=== PATIENT | female | born 1980 | race Caucasian/White ===

== ENCOUNTER 2019-12-24 19:04 | Inpatient (IN) | payer OTHER ==
--- NOTE | 2019-12-24 20:08 | PDOC ---
History of Present Illness - General Chief Complaint: Altered Mental Status Stated Complaint: Altered Mental Status Time Seen by Provider: 12/24/19 20:07 History Source: Patient Exam Limitations: Intoxication - History of Present Illness Initial Comments: 12/24/19 21:35 Ms. Kennedy is a 39y/o female with cocaine, alcohol, and heroin use disorders who presents from [facility] for AMS. Pt complains of left side chest, breast, and abdominal pain of unknown amount of time. She denies recent surgeries. She reports shortness of breath. She denies nausea or vomiting. She presented to [facility] for rehab. Her last use of cocaine inhalation (2 bags/daily) was 2 days ago. Last use of heroin injection (2-3 bags/daily) was 2 days ago. She denies alcohol use during current interview. History is limited due to pt's mental status. CIWA 8 COWS 5 Past History - Past Medical History Allergies/Adverse Reactions: Allergies Allergy/AdvReac Type Severity Reaction Status Date / Time No Known Allergies Allergy Verified 12/24/19 19:22 Home Medications: Ambulatory Orders Cefpodoxime Proxetil [Vantin -] 200 mg PO Q12H #12 tablet 12/27/19 Clindamycin [Cleocin -] 300 mg PO Q12H #12 capsule 12/27/19 Folic Acid 1 mg PO DAILY #30 tablet 12/27/19 Multivitamin [Multiple Vitamins] 1 each PO DAILY #30 tablet 12/27/19 Thiamine HCl [B-1] 100 mg PO DAILY #30 tablet 12/27/19 - Psycho Social/Smoking Cessation Hx Smoking History: Current every day smoker Have you smoked in the past 12 months: Yes Information on smoking cessation initiated: No 'Breaking Loose' booklet given: 02/08/17 Hx Alcohol Use: Yes Drug/Substance Use Hx: Yes Substance Use Type: Cocaine, Heroin Hx Substance Use Treatment: No Review of Systems - Review of Systems Constitutional: Yes: Other (feels warm) Respiratory: Yes: Shortness of Breath Cardiac (ROS): Yes: Chest Pain ABD/GI: No: Nausea, Vomiting *Physical Exam - Vital Signs Last Vital Signs Temp Pulse Resp BP Pulse Ox 99.9 F H 92 H 16 131/87 97 12/24/19 19:22 12/24/19 19:22 12/24/19 19:22 12/24/19 19:22 12/24/19 19:22 - Physical Exam General Appearance: Yes: Disheveled HEENT: positive: Other (pinpoint pupils b/l) Neck: positive: Trachea midline Respiratory/Chest: positive: Lungs Clear Cardiovascular: positive: Regular Rhythm, Regular Rate. negative: Murmur Gastrointestinal/Abdominal: positive: Normal Bowel Sounds, Tender, Guarding ( upper abdominal) Extremity: positive: Other (b/l scarring and calcification of antecubitals on arms) Integumentary: positive: Other (left upper nipple line is slightly erythematous and possible absorbable suture material noted) Neurologic: positive: Other (somnolent, alert to person only) ED Treatment Course - LABORATORY CBC & Chemistry Diagram: 12/26/19 07:22 12/27/19 12:20 Medical Decision Making - Medical Decision Making 12/24/19 21:49 Ms. Kennedy is a 39y/o female with cocaine use disorder and alcohol use disorder who presents from [facility] for AMS. Pt complains of left side chest, breast, and abdominal pain. She denies recent surgeries. ddx: r/o sepsis, cellulitis of breast, bacteremia orders: CBC, CMP, trop, lactic, flu swab, CXR, EKG, CT head, IV NS 12/24/19 22:40 no leukocytosis, CMP unremarkable 12/24/19 23:09 flu negative, serum negative, alcohol negative 12/24/19 23:38 Pt still alert to person only Discharge - Discharge Information Problems reviewed: Yes Clinical Impression/Diagnosis: AMS (altered mental status) Qualifiers: Altered mental status type: unspecified Qualified Code(s): R41.82 - Altered mental status, unspecified Condition: Improved - Follow up/Referral - Patient Discharge Instructions - Post Discharge Activity
[2019-12-24] MEDS ORDERED: SODIUM CHLORIDE 2,109 ML IV ONE (20:48)
[2019-12-24 21:47] LABS: BASO % 0.3 % (0-2.0); EOS % 3.6 % (0-4.5); HEMATOCRIT 32.6 % (32.4-45.2); HEMOGLOBIN 10.7 GM/dL (10.7-15.3); LYMPH % 25.2 % (8-40); MCH 26.6 pg (25.7-33.7); MCHC 32.7 g/dl (32.0-36.0); MEAN CELL VOLUME 81.5 fl (80-96); MONO % 5.1 % (3.8-10.2); NEUT % 65.8 % (42.8-82.8); PLATELET COUNT 296 K/MM3 (134-434); RDW 16.2 % (11.6-15.6); WHITE BLOOD COUNT 7.5 K/mm3 (4.0-10.0)
[2019-12-24 21:50] LABS: VENOUS PC02 43.1 mmHg (38-52); VENOUS PH 7.45 (7.31-7.41)
--- NOTE | 2019-12-24 21:52 | PDOC ---
Documentation entered by Johanna Epps SCRIBE, acting as scribe for Zaida Funes MD. Zaida Funes MD: This documentation has been prepared by the Supriya aguilera Nirvannie, SCRIBE, under my direction and personally reviewed by me in its entirety. I confirm that the documentation accurately reflects all work, treatment, procedures, and medical decision making performed by me. Attending Attestation - Resident Resident Name: Sherly Womack - ED Attending Attestation I have performed the following: I have examined & evaluated the patient, The case was reviewed & discussed with the resident, I agree w/resident's findings & plan, Exceptions are as noted - HPI HPI: 12/24/19 21:26 The patient is a year old female, with a significant past medical history of Polysubstance abuse (cocaine, alcohol, heroin), who presents to the emergency department with AMS and fever ( Tmax 99.9F). History is limited secondary to patients clinical condition thus was obtained via EMR and [facility] staff. Allergies: NKDA Social history: Alcohol abuse (2pts vodka/day last drink 1 day ago), Heroin abuse (5bags/day, last used 2 bags 1 day ago), cocaine abuse (2 bags/day, last used 1 day ago) - Physicial Exam PE: GENERAL: Somnolent, awakens to voice. HEAD: No signs of trauma EYES: Pupils small but reactive. EOMI, sclera anicteric, conjunctiva clear ENT: Auricles normal inspection, hearing grossly normal, nares patent, oropharynx clear without exudates. Dry mucosa NECK: Normal ROM, supple, no lymphadenopathy, JVD, or masses LUNGS: Breath sounds equal, clear to auscultation bilaterally. No wheezes, and no crackles HEART: Regular rate and rhythm, normal S1 and S2, no murmurs, rubs or gallops ABDOMEN: Soft, nontender, normoactive bowel sounds. No guarding, no rebound. No masses EXTREMITIES: Normal range of motion, no edema. No clubbing or cyanosis. No cords, erythema, or tenderness NEUROLOGICAL: Cranial nerves II through XII grossly intact. Somewhat limited exam due to AMS. Motor and sensation intact SKIN: Warm, diaphoretic, normal turgor, no rashes. +Sutures to the L breast, superior areola. No surrounding erythema - Medical Decision Making Poor historian, with polysubstance abuse as per chart review, presenting with AMS, 99.9 oral temp. Will initiate sepsis order set, as well as utox, flu swab, ammonia level. 12/25/19 02:00 Pt signed out to Dr. Blankenship at 2am shift change. Awaiting CTH and rectal temp. If febrile, she may require LP to r/o meningitis. If not, will wait until she is clinically sober.
[2019-12-24 22:23] LABS: ALBUMIN 3.2 g/dl (3.4-5.0); BILIRUBIN,TOTAL 0.2 mg/dL (0.2-1); CALCIUM 8.4 mg/dL (8.5-10.1); CREATININE 0.6 mg/dL (0.55-1.3); POTASSIUM 3.8 mmol/L (3.5-5.1)
[2019-12-24 22:30] LABS: INR 1.18 (0.83-1.09)
[2019-12-24 22:32] LABS: ACTIVATED PTT 32.3 SECONDS (25.2-36.5)
--- NOTE | 2019-12-25 00:42 | PDOC ---
*Physical Exam - Vital Signs Last Vital Signs Temp Pulse Resp BP Pulse Ox 99.9 F H 92 H 16 131/87 97 12/24/19 19:22 12/24/19 19:22 12/24/19 19:22 12/24/19 19:22 12/24/19 19:22 ED Treatment Course - LABORATORY CBC & Chemistry Diagram: 12/24/19 21:00 12/24/19 21:00 - ADDITIONAL ORDERS Additional order review: Laboratory Results 12/24/19 12/24/19 12/24/19 21:00 21:00 21:00 PT with INR INR PTT (Actin FS) VBG pH POC VBG pCO2 POC VBG pO2 VBG HCO3 VBG O2 Sat (Cindy) VBG Base Excess Sodium Potassium Chloride Carbon Dioxide Anion Gap BUN Creatinine Est GFR (CKD-EPI)AfAm Est GFR (CKD-EPI)NonAf Random Glucose Lactic Acid Calcium Total Bilirubin AST ALT Alkaline Phosphatase Ammonia 19.40 Troponin I Total Protein Albumin Serum , Qual Negative Alcohol, Quantitative < 3 12/24/19 12/24/19 12/24/19 21:00 21:00 21:00 PT with INR 14.00 H INR 1.18 H PTT (Actin FS) 32.3 VBG pH 7.45 H POC VBG pCO2 43.1 POC VBG pO2 73.0 H VBG HCO3 29.7 H VBG O2 Sat (Cindy) 94.4 H VBG Base Excess 5.6 H Sodium Potassium Chloride Carbon Dioxide Anion Gap BUN Creatinine Est GFR (CKD-EPI)AfAm Est GFR (CKD-EPI)NonAf Random Glucose Lactic Acid Calcium Total Bilirubin AST ALT Alkaline Phosphatase Ammonia Troponin I < 0.02 Total Protein Albumin Serum , Qual Alcohol, Quantitative 12/24/19 12/24/19 21:00 21:00 PT with INR INR PTT (Actin FS) VBG pH POC VBG pCO2 POC VBG pO2 VBG HCO3 VBG O2 Sat (Cindy) VBG Base Excess Sodium 135 L Potassium 3.8 Chloride 102 Carbon Dioxide 28 Anion Gap 6 L BUN 7.0 Creatinine 0.6 Est GFR (CKD-EPI)AfAm 132.14 Est GFR (CKD-EPI)NonAf 114.01 Random Glucose 91 Lactic Acid 1.2 Calcium 8.4 L Total Bilirubin 0.2 AST 17 ALT 14 Alkaline Phosphatase 93 Ammonia Troponin I Total Protein 8.0 Albumin 3.2 L Serum , Qual Alcohol, Quantitative 12/24/19 21:00 RBC 4.00 MCV 81.5 MCHC 32.7 RDW 16.2 H MPV 8.0 Neutrophils % 65.8 Lymphocytes % 25.2 Monocytes % 5.1 Eosinophils % 3.6 Basophils % 0.3 - Medications Given in the ED: ED Medications Discontinued Medications Generic Name Dose Route Start Last Admin Trade Name Davi PRN Reason Stop Dose Admin Sodium Chloride 2,109 mls @ 1,054.5 mls/hr 12/24/19 20:48 12/24/19 21:32 Normal Saline - 30 ml/kg infuse over 2 hr (2109 ml) 12/24/19 22:47 1,054.5 mls/hr IV Administration ONCE ONE Medical Decision Making - Medical Decision Making 12/25/19 00:42 Sign out. 39y F with PMH of cocaine, heroin use, alcohol use presenting from [facility] for AMS. Pt was complaining of chest and breast pain. Pt states she last used cocaine and heroin yesterday, "used a lot'. Pt states that "everything is wrong ' and will not elaborate further. She urinated and defacated on the floor. She is states her name, knows she's at [facility] but does not answer questions when asked what the date is. Is not fully following commands. has mulitple skin lesions from drug use. sutures near l nipple without signs of infection. pending urine, ct. all other workup has been negative. CT The ventricular system is midline and nondilated. The sulcal pattern is normal for the patient's age. There is no bleed, mass, extra-axial fluid collection or mass effect. Comminuted and mildly depressed nasal fracture is noted. The vomer is fractured. No skull fracture or skull lesion is identified. The mastoid air cells are clear. Patchy ethmoid sinus opacification may be blood from trauma. IMPRESSION: Nasal bridge and vomer fractures. No skull fracture or intracranial hemorrhage. 12/25/19 06:31 ua negative for infection. positive for cocaine and opiates which pt states she uses. will admit for AMS. Discharge - Discharge Information Problems reviewed: Yes Clinical Impression/Diagnosis: AMS (altered mental status) Qualifiers: Altered mental status type: unspecified Qualified Code(s): R41.82 - Altered mental status, unspecified Condition: Stable - Admission Yes - Follow up/Referral - Patient Discharge Instructions - Post Discharge Activity
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
[2019-12-25] MEDS ORDERED: SODIUM CHLORIDE 1,000 ML IV STA (02:22)
[2019-12-25] MEDS ORDERED: FOLIC ACID INJECTION - 1 MG, THIAMINE HCL 100 MG, MULTIVIT INJECTION ADULT 10 ML in SOD... IVPB ONE (05:07)
[2019-12-25 06:11] LABS: PH,URINE 8.5 (5.0-8.0); URINE APPEARANCE CLEAR; URINE BILIRUBIN NEGATIVE (NEGATIVE); URINE COLOR YELLOW; URINE GLUCOSE (UA) NEGATIVE (NEGATIVE); URINE KETONE NEGATIVE (NEGATIVE); URINE LEUK ESTERASE NEGATIVE (NEGATIVE); URINE NITRITE NEGATIVE (NEGATIVE); URINE PROTEIN NEGATIVE (NEGATIVE)
[2019-12-25 06:25] LABS: METHADONE, UR NEGATIVE ng/ml (CUTOFF=300); PHENCYCLIDINE,URINE NEGATIVE ng/ml (CUTOFF=25); URINE AMPHETAMINES NEGATIVE ng/ml (CUTOFF=500); URINE BARBITURATES NEGATIVE ng/ml (CUTOFF=200); URINE BENZODIAZEPINES NEGATIVE ng/ml (CUTOFF=200)
[2019-12-25 06:39] LABS: COCAINE, UR POSITIVE ng/ml (CUTOFF=300)
[2019-12-25 06:40] LABS: OPIATES, URI POSITIVE ng/ml (CUTOFF=300)
--- NOTE | 2019-12-25 07:10 | PDOC ---
*Physical Exam - Vital Signs Last Vital Signs Temp Pulse Resp BP Pulse Ox 98.4 F 94 H 18 127/84 95 12/25/19 02:17 12/25/19 05:28 12/25/19 05:28 12/25/19 05:28 12/25/19 05:28 - Physical Exam 12/25/19 07:09 Received sign out from Dr. Patel ED Treatment Course - LABORATORY CBC & Chemistry Diagram: 12/26/19 07:22 12/26/19 07:22 - ADDITIONAL ORDERS Additional order review: Laboratory Results 12/25/19 12/25/19 12/24/19 05:05 05:05 21:00 PT with INR INR PTT (Actin FS) VBG pH POC VBG pCO2 POC VBG pO2 VBG HCO3 VBG O2 Sat (Cindy) VBG Base Excess Sodium Potassium Chloride Carbon Dioxide Anion Gap BUN Creatinine Est GFR (CKD-EPI)AfAm Est GFR (CKD-EPI)NonAf Random Glucose Lactic Acid Calcium Total Bilirubin AST ALT Alkaline Phosphatase Ammonia Troponin I Total Protein Albumin Serum , Qual Negative Urine Color Yellow Urine Appearance Clear Urine pH 8.5 H D Ur Specific [place] 1.009 L Urine Protein Negative Urine Glucose (UA) Negative Urine Ketones Negative Urine Blood Negative Urine Nitrite Negative Urine Bilirubin Negative Urine Urobilinogen 1.0 Ur Leukocyte Esterase Negative Opiates Screen Positive A* Methadone Screen Negative Barbiturate Screen Negative Phencyclidine Screen Negative Ur Amphetamines Screen Negative MDMA (Ecstasy) Screen Negative Benzodiazepines Screen Negative Cocaine Screen Positive A* U Marijuana (THC) Screen Negative Alcohol, Quantitative 12/24/19 12/24/19 12/24/19 21:00 21:00 21:00 PT with INR INR PTT (Actin FS) VBG pH 7.45 H POC VBG pCO2 43.1 POC VBG pO2 73.0 H VBG HCO3 29.7 H VBG O2 Sat (Cindy) 94.4 H VBG Base Excess 5.6 H Sodium Potassium Chloride Carbon Dioxide Anion Gap BUN Creatinine Est GFR (CKD-EPI)AfAm Est GFR (CKD-EPI)NonAf Random Glucose Lactic Acid Calcium Total Bilirubin AST ALT Alkaline Phosphatase Ammonia 19.40 Troponin I Total Protein Albumin Serum , Qual Urine Color Urine Appearance Urine pH Ur Specific [place] Urine Protein Urine Glucose (UA) Urine Ketones Urine Blood Urine Nitrite Urine Bilirubin Urine Urobilinogen Ur Leukocyte Esterase Opiates Screen Methadone Screen Barbiturate Screen Phencyclidine Screen Ur Amphetamines Screen MDMA (Ecstasy) Screen Benzodiazepines Screen Cocaine Screen U Marijuana (THC) Screen Alcohol, Quantitative < 3 12/24/19 12/24/19 12/24/19 21:00 21:00 21:00 PT with INR 14.00 H INR 1.18 H PTT (Actin FS) 32.3 VBG pH POC VBG pCO2 POC VBG pO2 VBG HCO3 VBG O2 Sat (Cindy) VBG Base Excess Sodium Potassium Chloride Carbon Dioxide Anion Gap BUN Creatinine Est GFR (CKD-EPI)AfAm Est GFR (CKD-EPI)NonAf Random Glucose Lactic Acid 1.2 Calcium Total Bilirubin AST ALT Alkaline Phosphatase Ammonia Troponin I < 0.02 Total Protein Albumin Serum , Qual Urine Color Urine Appearance Urine pH Ur Specific [place] Urine Protein Urine Glucose (UA) Urine Ketones Urine Blood Urine Nitrite Urine Bilirubin Urine Urobilinogen Ur Leukocyte Esterase Opiates Screen Methadone Screen Barbiturate Screen Phencyclidine Screen Ur Amphetamines Screen MDMA (Ecstasy) Screen Benzodiazepines Screen Cocaine Screen U Marijuana (THC) Screen Alcohol, Quantitative 12/24/19 21:00 PT with INR INR PTT (Actin FS) VBG pH POC VBG pCO2 POC VBG pO2 VBG HCO3 VBG O2 Sat (Cindy) VBG Base Excess Sodium 135 L Potassium 3.8 Chloride 102 Carbon Dioxide 28 Anion Gap 6 L BUN 7.0 Creatinine 0.6 Est GFR (CKD-EPI)AfAm 132.14 Est GFR (CKD-EPI)NonAf 114.01 Random Glucose 91 Lactic Acid Calcium 8.4 L Total Bilirubin 0.2 AST 17 ALT 14 Alkaline Phosphatase 93 Ammonia Troponin I Total Protein 8.0 Albumin 3.2 L Serum , Qual Urine Color Urine Appearance Urine pH Ur Specific [place] Urine Protein Urine Glucose (UA) Urine Ketones Urine Blood Urine Nitrite Urine Bilirubin Urine Urobilinogen Ur Leukocyte Esterase Opiates Screen Methadone Screen Barbiturate Screen Phencyclidine Screen Ur Amphetamines Screen MDMA (Ecstasy) Screen Benzodiazepines Screen Cocaine Screen U Marijuana (THC) Screen Alcohol, Quantitative 12/24/19 21:00 RBC 4.00 MCV 81.5 MCHC 32.7 RDW 16.2 H MPV 8.0 Neutrophils % 65.8 Lymphocytes % 25.2 Monocytes % 5.1 Eosinophils % 3.6 Basophils % 0.3 - Medications Given in the ED: ED Medications Discontinued Medications Generic Name Dose Route Start Last Admin Trade Name Davi PRN Reason Stop Dose Admin Sodium Chloride 2,109 mls @ 1,054.5 mls/hr 12/24/19 20:48 12/24/19 21:32 Normal Saline - 30 ml/kg infuse over 2 hr (2109 ml) 12/24/19 22:47 1,054.5 mls/hr IV Administration ONCE ONE Sodium Chloride 1,000 mls @ 1,000 mls/hr 12/25/19 02:22 12/25/19 03:04 Normal Saline - IV 12/25/19 03:21 1,000 mls/hr ASDIR STA Administration Medical Decision Making - Medical Decision Making Patient was accepted for admission by the hospitalist team. The sign out was conducted by Dr. Patel Discharge - Discharge Information Problems reviewed: Yes Clinical Impression/Diagnosis: AMS (altered mental status) Qualifiers: Altered mental status type: unspecified Qualified Code(s): R41.82 - Altered mental status, unspecified Condition: Stable - Follow up/Referral - Patient Discharge Instructions - Post Discharge Activity
[2019-12-25] MEDS ORDERED: FOLIC ACID 1 MG TABLET (FP) PO ONE (11:34)
[2019-12-25] MEDS ORDERED: THIAMINE HCL 100 MG TABLET (FP) ONE (12:25)
[2019-12-25] MEDS ORDERED: FOLIC ACID 1 MG TABLET (FP) ONE (12:25)
[2019-12-25] MEDS: THIAMINE HCL 100 MG TABLET (FP) PO SCH (12:28)
--- NOTE | 2019-12-25 12:35 | HP ---
CHIEF COMPLAINT: AMS PCP: none HISTORY OF PRESENT ILLNESS: Pt is a 39 y/o F with PMH poly substance abuse (cocaine, heroin, EtOH - does inject, last known use 12/23/2019) who was sent to the ED from [facility] for altered mental status. Reportedly pt was complaining of L breast pain initially , though she did not have that at the time of my interview. Pt was uncooperative with interview and exam requiring repeated prompting to answer any questions. She admitted to pain "everywhere", but refused to clarify any area particular discomfort. Refused to answer further ROS questions. When asked , stated she did not know where she was. Noted to have urinated in the bed and reportedly defecated on the floor in the emergency department last night. ER course was notable for: (1) Utox pos for opiate and cocaine (2) CT head: nasal septal defect, Right posterior nasal polyp, ethmoid chronic sinusitis, CXR: large heart, R atalectasis (3) Recent Travel: none PAST MEDICAL HISTORY: polysubstance abuse PAST SURGICAL HISTORY: B/l breast augmentation years ago Social History: Smoking: unknown Alcohol: reportedly drinks several pints of liquor daily Drugs: cocaine, heroin Homeless Allergies No Known Allergies Allergy (Verified 12/24/19 19:22) HOME MEDICATIONS: Home Medications Medication Instructions Recorded NK [No Known Home Medication] 12/24/19 REVIEW OF SYSTEMS: unable to assess PHYSICAL EXAMINATION Vital Signs - 24 hr 12/24/19 12/25/19 12/25/19 19:22 02:17 05:28 Temperature 99.9 F H 98.4 F Pulse Rate 92 H Pulse Rate [ 94 H Right] Respiratory 16 18 Rate Blood Pressure 131/87 Blood Pressure 127/84 [Right Arm] O2 Sat by Pulse 97 95 Oximetry (%) Limited exam. Pt uncooperative Gen: rousable, not oriented HEENT: NCAT, moist membranes Breast: s/p augmentation (? multiple procedures with scarring at inferior aspect and around areola), residual suture embedded in skin of left areola, no tenderness, no erythema, implants appear to be intact Cardio: rrr, normal s1s2, no mrg noted Pulm: cta b/l Abd: soft, nontender, nondistended Ext: LUE with scarring, no edema Laboratory Results - last 24 hr 12/24/19 12/24/19 12/24/19 21:00 21:00 21:00 WBC 7.5 RBC 4.00 Hgb 10.7 Hct 32.6 MCV 81.5 MCH 26.6 MCHC 32.7 RDW 16.2 H Plt Count 296 MPV 8.0 Absolute Neuts (auto) 4.9 Neutrophils % 65.8 Lymphocytes % 25.2 Monocytes % 5.1 Eosinophils % 3.6 Basophils % 0.3 Nucleated RBC % 0 PT with INR INR PTT (Actin FS) VBG pH POC VBG pCO2 POC VBG pO2 VBG HCO3 VBG O2 Sat (Cindy) VBG Base Excess Sodium 135 L Potassium 3.8 Chloride 102 Carbon Dioxide 28 Anion Gap 6 L BUN 7.0 Creatinine 0.6 Est GFR (CKD-EPI)AfAm 132.14 Est GFR (CKD-EPI)NonAf 114.01 Random Glucose 91 Lactic Acid 1.2 Calcium 8.4 L Total Bilirubin 0.2 AST 17 ALT 14 Alkaline Phosphatase 93 Ammonia Troponin I Total Protein 8.0 Albumin 3.2 L Serum , Qual Urine Color Urine Appearance Urine pH Ur Specific [place] Urine Protein Urine Glucose (UA) Urine Ketones Urine Blood Urine Nitrite Urine Bilirubin Urine Urobilinogen Ur Leukocyte Esterase Opiates Screen Methadone Screen Barbiturate Screen Phencyclidine Screen Ur Amphetamines Screen MDMA (Ecstasy) Screen Benzodiazepines Screen Cocaine Screen U Marijuana (THC) Screen Alcohol, Quantitative Influenza A (Rapid) Influenza B (Rapid) 12/24/19 12/24/19 12/24/19 21:00 21:00 21:00 WBC RBC Hgb Hct MCV MCH MCHC RDW Plt Count MPV Absolute Neuts (auto) Neutrophils % Lymphocytes % Monocytes % Eosinophils % Basophils % Nucleated RBC % PT with INR 14.00 H INR 1.18 H PTT (Actin FS) 32.3 VBG pH 7.45 H POC VBG pCO2 43.1 POC VBG pO2 73.0 H VBG HCO3 29.7 H VBG O2 Sat (Cindy) 94.4 H VBG Base Excess 5.6 H Sodium Potassium Chloride Carbon Dioxide Anion Gap BUN Creatinine Est GFR (CKD-EPI)AfAm Est GFR (CKD-EPI)NonAf Random Glucose Lactic Acid Calcium Total Bilirubin AST ALT Alkaline Phosphatase Ammonia Troponin I < 0.02 Total Protein Albumin Serum , Qual Urine Color Urine Appearance Urine pH Ur Specific [place] Urine Protein Urine Glucose (UA) Urine Ketones Urine Blood Urine Nitrite Urine Bilirubin Urine Urobilinogen Ur Leukocyte Esterase Opiates Screen Methadone Screen Barbiturate Screen Phencyclidine Screen Ur Amphetamines Screen MDMA (Ecstasy) Screen Benzodiazepines Screen Cocaine Screen U Marijuana (THC) Screen Alcohol, Quantitative Influenza A (Rapid) Influenza B (Rapid) 12/24/19 12/24/19 12/24/19 21:00 21:00 21:00 WBC RBC Hgb Hct MCV MCH MCHC RDW Plt Count MPV Absolute Neuts (auto) Neutrophils % Lymphocytes % Monocytes % Eosinophils % Basophils % Nucleated RBC % PT with INR INR PTT (Actin FS) VBG pH POC VBG pCO2 POC VBG pO2 VBG HCO3 VBG O2 Sat (Cindy) VBG Base Excess Sodium Potassium Chloride Carbon Dioxide Anion Gap BUN Creatinine Est GFR (CKD-EPI)AfAm Est GFR (CKD-EPI)NonAf Random Glucose Lactic Acid Calcium Total Bilirubin AST ALT Alkaline Phosphatase Ammonia 19.40 Troponin I Total Protein Albumin Serum , Qual Negative Urine Color Urine Appearance Urine pH Ur Specific [place] Urine Protein Urine Glucose (UA) Urine Ketones Urine Blood Urine Nitrite Urine Bilirubin Urine Urobilinogen Ur Leukocyte Esterase Opiates Screen Methadone Screen Barbiturate Screen Phencyclidine Screen Ur Amphetamines Screen MDMA (Ecstasy) Screen Benzodiazepines Screen Cocaine Screen U Marijuana (THC) Screen Alcohol, Quantitative < 3 Influenza A (Rapid) Influenza B (Rapid) 12/24/19 12/25/19 12/25/19 22:00 05:05 05:05 WBC RBC Hgb Hct MCV MCH MCHC RDW Plt Count MPV Absolute Neuts (auto) Neutrophils % Lymphocytes % Monocytes % Eosinophils % Basophils % Nucleated RBC % PT with INR INR PTT (Actin FS) VBG pH POC VBG pCO2 POC VBG pO2 VBG HCO3 VBG O2 Sat (Cindy) VBG Base Excess Sodium Potassium Chloride Carbon Dioxide Anion Gap BUN Creatinine Est GFR (CKD-EPI)AfAm Est GFR (CKD-EPI)NonAf Random Glucose Lactic Acid Calcium Total Bilirubin AST ALT Alkaline Phosphatase Ammonia Troponin I Total Protein Albumin Serum , Qual Urine Color Yellow Urine Appearance Clear Urine pH 8.5 H D Ur Specific [place] 1.009 L Urine Protein Negative Urine Glucose (UA) Negative Urine Ketones Negative Urine Blood Negative Urine Nitrite Negative Urine Bilirubin Negative Urine Urobilinogen 1.0 Ur Leukocyte Esterase Negative Opiates Screen Positive A* Methadone Screen Negative Barbiturate Screen Negative Phencyclidine Screen Negative Ur Amphetamines Screen Negative MDMA (Ecstasy) Screen Negative Benzodiazepines Screen Negative Cocaine Screen Positive A* U Marijuana (THC) Screen Negative Alcohol, Quantitative Influenza A (Rapid) Negative Influenza B (Rapid) Negative ASSESSMENT/PLAN: Pt is a 39 y/o F with PMH poly substance abuse (cocaine, heroin, EtOH - does inject, last known use 12/23/2019) who was sent to the ED from [facility] for altered mental status. AMS/Substance abuse -unclear etiology. ? intoxication (though pt was sent from [facility] via patient transport) -Head CT negative for acute process -labs unremarkable -c/w folate, thiamine, multivitamin -monitor for signs of withdrawal -feed when alert and hungry -will consult addiction medicine Not on home meds. No other known medical problems DVT ppx -hep sub q Visit type - Emergency Visit Emergency Visit: Yes Care time: The patient presented to the Emergency Department on the above date and was hospitalized for further evaluation of their emergent condition. - New Patient This patient is new to me today: Yes Date on this admission: 12/25/19 - Critical Care Critical Care patient: No ATTENDING PHYSICIAN STATEMENT I saw and evaluated the patient. I reviewed the resident's note and discussed the case with the resident. I agree with the resident's findings and plan as documented. SUBJECTIVE: OBJECTIVE: ASSESSMENT AND PLAN:
[2019-12-25] MEDS: HEPARIN NA (PORCINE) 5,000 UNITS/ML 1ML VIAL SQ SCH ×2 (15:00→21:43)
--- NOTE | 2019-12-25 15:33 | PN ---
Teaching Attending Note Name of Resident: Malcolm Kinney ATTENDING PHYSICIAN STATEMENT I saw and evaluated the patient. I reviewed the resident's note and discussed the case with the resident. I agree with the resident's findings and plan as documented. SUBJECTIVE: Lethargic but rousable. No complaints. denies headache, visual disturbance, limb numbness, weakness, tingling. No abdominal pain/nausea/ vomiting. Admits to Heroin use and urinary incontinence. No fever/chills. No rash. OBJECTIVE: Low grade Temp 99.9. Hemodynamically stable. Unkempt, Malodorous, laying in her own urine. Lethargic but rousable. gives one-word answers. AAO x 1-2. Last Vital Signs Temp Pulse Resp BP Pulse Ox 98.4 F 80 20 144/91 100 12/25/19 14:00 12/25/19 14:00 12/25/19 14:00 12/25/19 14:00 12/25/19 14:00 HEENT - Atraumatic, Normocephalic. Heart - S1, S2, RRR Lungs - clear to auscultation Breasts (exam performed with consent and in the presence of medical residents) - superior aspect of L areolar has suture exposed. No surgical site infection/ dehiscence/discharge/erythema/tenderness. Abdomen - soft, non-tender. Bowel Sounds normal. Extremities - mild edema, no calf tenderness. Laboratory Results - last 24 hr 12/24/19 12/24/19 12/24/19 21:00 21:00 21:00 WBC 7.5 RBC 4.00 Hgb 10.7 Hct 32.6 MCV 81.5 MCH 26.6 MCHC 32.7 RDW 16.2 H Plt Count 296 MPV 8.0 Absolute Neuts (auto) 4.9 Neutrophils % 65.8 Lymphocytes % 25.2 Monocytes % 5.1 Eosinophils % 3.6 Basophils % 0.3 Nucleated RBC % 0 PT with INR INR PTT (Actin FS) VBG pH POC VBG pCO2 POC VBG pO2 VBG HCO3 VBG O2 Sat (Cindy) VBG Base Excess Sodium 135 L Potassium 3.8 Chloride 102 Carbon Dioxide 28 Anion Gap 6 L BUN 7.0 Creatinine 0.6 Est GFR (CKD-EPI)AfAm 132.14 Est GFR (CKD-EPI)NonAf 114.01 Random Glucose 91 Lactic Acid 1.2 Calcium 8.4 L Total Bilirubin 0.2 AST 17 ALT 14 Alkaline Phosphatase 93 Ammonia Troponin I Total Protein 8.0 Albumin 3.2 L Serum , Qual Urine Color Urine Appearance Urine pH Ur Specific [place] Urine Protein Urine Glucose (UA) Urine Ketones Urine Blood Urine Nitrite Urine Bilirubin Urine Urobilinogen Ur Leukocyte Esterase Opiates Screen Methadone Screen Barbiturate Screen Phencyclidine Screen Ur Amphetamines Screen MDMA (Ecstasy) Screen Benzodiazepines Screen Cocaine Screen U Marijuana (THC) Screen Alcohol, Quantitative Influenza A (Rapid) Influenza B (Rapid) 12/24/19 12/24/19 12/24/19 21:00 21:00 21:00 WBC RBC Hgb Hct MCV MCH MCHC RDW Plt Count MPV Absolute Neuts (auto) Neutrophils % Lymphocytes % Monocytes % Eosinophils % Basophils % Nucleated RBC % PT with INR 14.00 H INR 1.18 H PTT (Actin FS) 32.3 VBG pH 7.45 H POC VBG pCO2 43.1 POC VBG pO2 73.0 H VBG HCO3 29.7 H VBG O2 Sat (Cindy) 94.4 H VBG Base Excess 5.6 H Sodium Potassium Chloride Carbon Dioxide Anion Gap BUN Creatinine Est GFR (CKD-EPI)AfAm Est GFR (CKD-EPI)NonAf Random Glucose Lactic Acid Calcium Total Bilirubin AST ALT Alkaline Phosphatase Ammonia Troponin I < 0.02 Total Protein Albumin Serum , Qual Urine Color Urine Appearance Urine pH Ur Specific [place] Urine Protein Urine Glucose (UA) Urine Ketones Urine Blood Urine Nitrite Urine Bilirubin Urine Urobilinogen Ur Leukocyte Esterase Opiates Screen Methadone Screen Barbiturate Screen Phencyclidine Screen Ur Amphetamines Screen MDMA (Ecstasy) Screen Benzodiazepines Screen Cocaine Screen U Marijuana (THC) Screen Alcohol, Quantitative Influenza A (Rapid) Influenza B (Rapid) 12/24/19 12/24/19 12/24/19 21:00 21:00 21:00 WBC RBC Hgb Hct MCV MCH MCHC RDW Plt Count MPV Absolute Neuts (auto) Neutrophils % Lymphocytes % Monocytes % Eosinophils % Basophils % Nucleated RBC % PT with INR INR PTT (Actin FS) VBG pH POC VBG pCO2 POC VBG pO2 VBG HCO3 VBG O2 Sat (Cindy) VBG Base Excess Sodium Potassium Chloride Carbon Dioxide Anion Gap BUN Creatinine Est GFR (CKD-EPI)AfAm Est GFR (CKD-EPI)NonAf Random Glucose Lactic Acid Calcium Total Bilirubin AST ALT Alkaline Phosphatase Ammonia 19.40 Troponin I Total Protein Albumin Serum , Qual Negative Urine Color Urine Appearance Urine pH Ur Specific [place] Urine Protein Urine Glucose (UA) Urine Ketones Urine Blood Urine Nitrite Urine Bilirubin Urine Urobilinogen Ur Leukocyte Esterase Opiates Screen Methadone Screen Barbiturate Screen Phencyclidine Screen Ur Amphetamines Screen MDMA (Ecstasy) Screen Benzodiazepines Screen Cocaine Screen U Marijuana (THC) Screen Alcohol, Quantitative < 3 Influenza A (Rapid) Influenza B (Rapid) 12/24/19 12/25/19 12/25/19 22:00 05:05 05:05 WBC RBC Hgb Hct MCV MCH MCHC RDW Plt Count MPV Absolute Neuts (auto) Neutrophils % Lymphocytes % Monocytes % Eosinophils % Basophils % Nucleated RBC % PT with INR INR PTT (Actin FS) VBG pH POC VBG pCO2 POC VBG pO2 VBG HCO3 VBG O2 Sat (Cindy) VBG Base Excess Sodium Potassium Chloride Carbon Dioxide Anion Gap BUN Creatinine Est GFR (CKD-EPI)AfAm Est GFR (CKD-EPI)NonAf Random Glucose Lactic Acid Calcium Total Bilirubin AST ALT Alkaline Phosphatase Ammonia Troponin I Total Protein Albumin Serum , Qual Urine Color Yellow Urine Appearance Clear Urine pH 8.5 H D Ur Specific [place] 1.009 L Urine Protein Negative Urine Glucose (UA) Negative Urine Ketones Negative Urine Blood Negative Urine Nitrite Negative Urine Bilirubin Negative Urine Urobilinogen 1.0 Ur Leukocyte Esterase Negative Opiates Screen Positive A* Methadone Screen Negative Barbiturate Screen Negative Phencyclidine Screen Negative Ur Amphetamines Screen Negative MDMA (Ecstasy) Screen Negative Benzodiazepines Screen Negative Cocaine Screen Positive A* U Marijuana (THC) Screen Negative Alcohol, Quantitative Influenza A (Rapid) Negative Influenza B (Rapid) Negative Current Medications Generic Name Dose Route Start Last Admin Trade Name Freq PRN Reason Stop Dose Admin Heparin Sodium (Porcine) 5,000 unit 12/25/19 14:00 12/25/19 15:00 Heparin - SQ 5,000 unit TID [facility] Administration Multivitamins/Minerals/Vitamin C 1 tab 12/25/19 11:45 Tab-A-Vit - PO DAILY RADHA Thiamine HCl 100 mg 12/25/19 11:45 12/25/19 12:28 Vitamin B1 - PO 100 mg DAILY RADHA Administration Home Medications Medication Instructions Recorded NK [No Known Home Medication] 12/24/19 ASSESSMENT AND PLAN: 39 year old female with history of Polysubstance Abuse (Cocaine, IV Heroin, alcohol excess), presented to ED from for altered mental status. 1. Acute Metabolic Encephalopathy secondary to Polysubstance use/Intoxication. Lethargic but rousable. gives one-word answers. Baseline mental status/presence of cognitive dysfunction unclear - collateralHx required. CT Head: nasal septal defect, Right posterior nasal polyp, ethmoid chronic sinusitis s/p Banana Bag - continue MVI, Thiamine, Folate. No evidence of withdrawal currently. Will monitor. Addiction medicine consult. 2. Low Grade Fever, etiology unclear. CXR - rominent R infra-hilar markings ?infiltrate vs atelectasis. CT Chest recommended to exclude Pneumonia. Urine/Blood Cx pending. Will monitor off Abx. 3. Cardiomegaly on CXR - no evidence of decompensated HF. Given Cocaine and Alcohol history, will request Echo. DVT Px - Heparin SQ.
--- NOTE | 2019-12-25 15:45 | EKG ---
Test Reason : Blood Pressure : / mmHG Vent. Rate : 082 BPM Atrial Rate : 082 BPM P-R Int : 152 ms QRS Dur : 084 ms QT Int : 390 ms P-R-T Axes : 048 065 073 degrees QTc Int : 455 ms NORMAL SINUS RHYTHM NORMAL ECG NO PREVIOUS ECGS AVAILABLE Confirmed by MD MIKAEL, ALPHONSE ([id number]) on 12/25/2019 3:45:13 PM Referred By: Confirmed By:ALPHONSE YOUSSEF MD
[2019-12-25] MEDS: MULTIVITAMINS (DAILY MVI) TABLET (FP) PO SCH (17:04)
--- NOTE | 2019-12-25 19:05 | PDOC ---
Patient Follow-up (Call Back) - Post ED Follow - Up Condition at time of discharge: Stable Reason for Call Back: Radiology (Called by Dr. Oliva for abnormal cxr and is recommending CT. Already performed by inpatient team.)
[2019-12-25 23:15] VITALS: BMI 20.6
[2019-12-26] MEDS: HEPARIN NA (PORCINE) 5,000 UNITS/ML 1ML VIAL SQ SCH ×3 (05:22→21:44)
[2019-12-26 08:36] LABS: HEMATOCRIT 39.6 % (32.4-45.2); HEMOGLOBIN 13.4 GM/dL (10.7-15.3); MCH 26.8 pg (25.7-33.7); MCHC 33.9 g/dl (32.0-36.0); MEAN CELL VOLUME 79.1 fl (80-96); MEAN PLT VOLUME 8.3 fl (7.5-11.1); PLATELET COUNT 379 K/MM3 (134-434); RDW 16.1 % (11.6-15.6); WHITE BLOOD COUNT 8.1 K/mm3 (4.0-10.0)
[2019-12-26 09:07] LABS: BLOOD UREA NITROGEN 11.9 mg/dL (7-18); CALCIUM 9.2 mg/dL (8.5-10.1); CREATININE 0.6 mg/dL (0.55-1.3); MAGNESIUM 2.2 mg/dL (1.8-2.4); PHOSPHOROUS 4.4 mg/dL (2.5-4.9); POTASSIUM 3.4 mmol/L (3.5-5.1)
[2019-12-26] MEDS: MULTIVITAMINS (DAILY MVI) TABLET (FP) PO SCH (10:49)
[2019-12-26] MEDS: THIAMINE HCL 100 MG TABLET (FP) PO SCH (10:50)
[2019-12-26] MEDS ORDERED: guaiFENesin 200 MG/10 ML 10 ML UNIT-DOSE CUPS PO PRN (11:17)
--- NOTE | 2019-12-26 14:21 | PN ---
Progress Note (short form) - Note Progress Note: SUBJECTIVE: Awake, conversant, no complaints except for dry cough. Denies headache, visual disturbance, limb numbness, weakness, tingling. No abdominal pain/nausea/vomiting/diarrhea. no CP/palpitations/SOB. No dysuria/hematuria. No fever/chills. OBJECTIVE: Afebrile. Hemodynamically stable. Unkempt, Malodorous. AAO x 2. More alert today vs yesterday. Last Vital Signs Temp Pulse Resp BP Pulse Ox 97.6 F 89 18 154/96 98 12/26/19 05:47 12/26/19 05:47 12/26/19 05:47 12/26/19 05:47 12/25/19 20:00 Heart - S1, S2, RRR Lungs - clear to auscultation Abdomen - soft, non-tender. Bowel Sounds normal. Extremities - mild edema, no calf tenderness. Laboratory Results - last 24 hr 12/24/19 12/26/19 12/26/19 21:00 07:22 07:22 WBC 8.1 RBC 5.00 Hgb 13.4 Hct 39.6 D MCV 79.1 L MCH 26.8 MCHC 33.9 RDW 16.1 H Plt Count 379 D MPV 8.3 Sodium 133 L Potassium 3.4 L Chloride 98 Carbon Dioxide 26 Anion Gap 9 BUN 11.9 Creatinine 0.6 Est GFR (CKD-EPI)AfAm 132.14 Est GFR (CKD-EPI)NonAf 114.01 Random Glucose 105 Calcium 9.2 Phosphorus 4.4 Magnesium 2.2 Troponin I < 0.02 TSH 0.14 L Current Medications Generic Name Dose Route Start Last Admin Trade Name Freq PRN Reason Stop Dose Admin Guaifenesin 10 ml 12/26/19 11:17 12/26/19 13:04 Robitussin - PO 10 ml Q6H PRN Administration COUGH Heparin Sodium (Porcine) 5,000 unit 12/25/19 14:00 12/26/19 13:04 Heparin - SQ 5,000 unit TID [facility] Administration Multivitamins/Minerals/Vitamin C 1 tab 12/25/19 11:45 12/26/19 10:49 Tab-A-Vit - PO 1 tab DAILY RADHA Administration Thiamine HCl 100 mg 12/25/19 11:45 12/26/19 10:50 Vitamin B1 - PO 100 mg DAILY RADHA Administration Home Medications Medication Instructions Recorded NK [No Known Home Medication] 12/24/19 ASSESSMENT AND PLAN: 39 year old female with history of Polysubstance Abuse (Cocaine, IV Heroin, alcohol excess), presented to ED from for altered mental status. 1. Acute Metabolic Encephalopathy secondary to Polysubstance use/Intoxication. Awake, Alert x 2. appears to have some cognitive deficit. Baseline mental status /presence of cognitive dysfunction unclear - collateral Hx required. CT Head: nasal septal defect, Right posterior nasal polyp, ethmoid chronic sinusitis s/p Banana Bag - continue MVI, Thiamine, Folate. No evidence of withdrawal currently. Will monitor. Addiction medicine consulted. 2. Low Grade Fever, resolved CXR - prominent R infra-hilar markings ?infiltrate vs atelectasis. CT Chest recommended to exclude Pneumonia - awaiting official radiology read. Urine Cx contaminated. Blood Cx negative. Will monitor off Abx. 3. Cardiomegaly on CXR - no evidence of decompensated HF. Given Cocaine and Alcohol excess history, Echo requested. 4. Hypokalemia - repleted. DVT Px - Heparin SQ. Visit type - Emergency Visit Emergency Visit: Yes ED Registration Date: 12/25/19 Care time: The patient presented to the Emergency Department on the above date and was hospitalized for further evaluation of their emergent condition. - New Patient This patient is new to me today: No - Critical Care Critical Care patient: No - Discharge Referral Referred to [facility] No
[2019-12-26] MEDS ORDERED: POTASSIUM CHLORIDE TABS 20 MEQ TABLET.ER (FP) PO ONE (16:43)
[2019-12-26] MEDS: CLINDAMYCIN 600MG PREMIX IVPB 600 MG/50 ML BAG IVPB SCH ×2 (17:24→21:45)
[2019-12-26] MEDS ORDERED: DEXTROSE 5%-WATER - 50 ML IVPB ONE (17:30)
[2019-12-26] MEDS ORDERED: cefTRIAXone SODIUM 1 GM VIAL ONE (17:30)
[2019-12-26] MEDS: CEFTRIAXONE 1 GM in DEXTROSE 5%-WATER - 50 ML IVPB SCH (17:31)
[2019-12-27] MEDS: CLINDAMYCIN 600MG PREMIX IVPB 600 MG/50 ML BAG IVPB SCH ×4 (02:50→21:52)
[2019-12-27] MEDS: HEPARIN NA (PORCINE) 5,000 UNITS/ML 1ML VIAL SQ SCH ×3 (05:58→21:53)
[2019-12-27] MEDS ORDERED: ACETAMINOPHEN 325 MG TABLET (FP) PO PRN (08:25)
[2019-12-27] MEDS ORDERED: POTASSIUM CHLORIDE TABS 20 MEQ TABLET.ER (FP) PO ONE (08:30)
[2019-12-27] MEDS ORDERED: DEXTROSE 5%-WATER - 50 ML IVPB ONE (08:35)
[2019-12-27] MEDS ORDERED: cefTRIAXone SODIUM 1 GM VIAL ONE (08:35)
[2019-12-27] MEDS: THIAMINE HCL 100 MG TABLET (FP) PO SCH ×2 (08:38→09:19)
[2019-12-27] MEDS: MULTIVITAMINS (DAILY MVI) TABLET (FP) PO SCH ×2 (08:38→09:19)
[2019-12-27] MEDS: CEFTRIAXONE 1 GM in DEXTROSE 5%-WATER - 50 ML IVPB SCH ×2 (08:39→09:18)
[2019-12-27] MEDS ORDERED: cloNIDine HCL 0.1 MG TABLET PO PRN (11:46)
[2019-12-27] MEDS ORDERED: METHADONE HCL 10 MG TABLET PO ONE (12:00)
[2019-12-27] MEDS ORDERED: MAG HYDROX/AL HYDROX/SIMETH 30 ML UNIT-DOSE CUP PO ONE (13:30)
[2019-12-27] MEDS ORDERED: ACETAMINOPHEN 1000 MG/100 ML VIAL (NON FORMULARY) IVPB ONE (13:30)
--- NOTE | 2019-12-27 14:29 | PN ---
Teaching Attending Note Name of Resident: Louis Harding ATTENDING PHYSICIAN STATEMENT I saw and evaluated the patient. I reviewed the resident's note and discussed the case with the resident. I agree with the resident's findings and plan as documented. SUBJECTIVE: Awake, conversant, no complaints except wants to [place]. Denies headache, visual disturbance, limb numbness, weakness, tingling. complains of intermittent abdominal discomfort/nausea. No vomiting. No diarrhea. No CP/palpitations/SOB. No dysuria/hematuria. No fever/chills. OBJECTIVE: Afebrile. Hemodynamically stable. Unkempt, Malodorous. AAO x 2. Last Vital Signs Temp Pulse Resp BP Pulse Ox 98.3 F 104 H 20 150/80 98 12/27/19 05:09 12/27/19 05:09 12/27/19 05:09 12/27/19 05:09 12/25/19 20:00 Heart - S1, S2, RRR Lungs - clear to auscultation Abdomen - soft, non-tender. Bowel Sounds normal. Extremities - mild edema, no calf tenderness. Laboratory Results - last 24 hr 12/26/19 12/27/19 07:22 12:20 Sodium 133 L Potassium 3.4 L 4.5 Chloride 98 Carbon Dioxide 26 Anion Gap 9 BUN 11.9 Creatinine 0.6 Est GFR (CKD-EPI)AfAm 132.14 Est GFR (CKD-EPI)NonAf 114.01 Random Glucose 105 Calcium 9.2 Phosphorus 4.4 Magnesium 2.2 Free T4 1.24 Current Medications Generic Name Dose Route Start Last Admin Trade Name Freq PRN Reason Stop Dose Admin Acetaminophen 650 mg 12/27/19 08:25 12/27/19 08:38 Tylenol - PO 650 mg Q4H PRN Administration PAIN LEVEL 6-10 Clonidine 0.1 mg 12/27/19 11:46 Catapres - PO 12/28/19 23:59 Q4H PRN Withdrawal Symptoms Guaifenesin 10 ml 12/26/19 11:17 12/26/19 13:04 Robitussin - PO 10 ml Q6H PRN Administration COUGH Heparin Sodium (Porcine) 5,000 unit 12/25/19 14:00 12/27/19 14:04 Heparin - SQ 5,000 unit TID RADHA Administration Ceftriaxone Sodium 1 gm/ 50 mls @ 100 mls/hr 12/26/19 16:45 12/27/19 09:18 Dextrose IVPB Not Given DAILY [facility] Clindamycin Phosphate 600 mg in 50 mls @ 100 mls/hr 12/26/19 17:00 12/27/19 08:39 Cleocin 600 Mg Premix Ivpb - IVPB 100 mls/hr Q6H-IV RADHA Administration Protocol Methadone HCl 15 mg 12/28/19 10:00 Dolophine - PO 12/28/19 10:01 ONCE ONE Methadone HCl 10 mg 12/29/19 10:00 Dolophine - PO 12/29/19 10:01 ONCE ONE Methadone HCl 5 mg 12/30/19 06:00 Dolophine - PO 12/30/19 06:01 ONCE ONE Multivitamins/Minerals/Vitamin C 1 tab 12/25/19 11:45 12/27/19 09:19 Tab-A-Vit - PO Not Given DAILY [facility] Thiamine HCl 100 mg 12/25/19 11:45 12/27/19 09:19 Vitamin B1 - PO Not Given DAILY [facility] Home Medications Medication Instructions Recorded Cefpodoxime Proxetil [Vantin -] 200 mg PO Q12H #12 tablet 12/27/19 Clindamycin [Cleocin -] 300 mg PO Q12H #12 capsule 12/27/19 Folic Acid 1 mg PO DAILY #30 tablet 12/27/19 Multivitamin [Multiple Vitamins] 1 each PO DAILY #30 tablet 12/27/19 Thiamine HCl [B-1] 100 mg PO DAILY #30 tablet 12/27/19 ASSESSMENT AND PLAN: 39 year old female with history of Polysubstance Abuse (Cocaine, IV Heroin, alcohol excess), presented to ED from for altered mental status. 1. Acute Metabolic Encephalopathy secondary to Polysubstance use/Intoxication. Awake, Alert x 2. appears to have some cognitive deficit. Baseline mental status /presence of cognitive dysfunction unclear - collateral Hx required. CT Head: nasal septal defect, Right posterior nasal polyp, ethmoid chronic sinusitis s/p Banana Bag - continue MVI, Thiamine, Folate. Starting to display some signs/symptoms of opiate withdrawal including nausea. Will start methadone detox and monitor. Addiction medicine consulted - for transfer to [facility] once accepted. 2. bilateral Pneumonia, Aspiration Bilat infiltrates on CT Chest. On ceftriaxone/Clinda. Afebrile, hemodynamically stable. Can continue as out-patient on Cephalosporin and Clindamycin. 3. Cardiomegaly on CXR - no evidence of decompensated HF. Given Cocaine and Alcohol excess history, Echo requested - patient declines. No evidence of fluid overload or decompensation currently. 4. Hypokalemia - repleted. 5. Pulmonary Nodules - for out-patient Pulmonary follow up. 6. Low TSH, normal free T4 - for out-patient repeat TFTs in 4-6 weeks. DVT Px - Heparin SQ. Dispo - [facility] once patient agrees and is accepted.
--- NOTE | 2019-12-27 15:18 | DS ---
Physical Exam: SUBJECTIVE: Patient seen and examined OBJECTIVE: Vital Signs Period Temp Pulse Resp BP Sys/Abraham Pulse Ox Last 24 Hr 98.1 F-98.3 F 94-104 20-20 150-153/66-80 PHYSICAL EXAM GENERAL: The patient is awake, alert, and fully oriented, in no acute distress. HEAD: Normal with no signs of trauma. EYES: PERRL, extraocular movements intact, sclera anicteric, conjunctiva clear. ENT: Ears normal, nares patent, oropharynx clear without exudates, moist mucous membranes. NECK: Trachea midline, full range of motion, supple. LUNGS: Breath sounds equal, clear to auscultation bilaterally, no wheezes, no crackles, no accessory muscle use. HEART: Regular rate and rhythm, S1, S2 without murmur, rub or gallop. ABDOMEN: Soft, nontender, nondistended, normoactive bowel sounds, no guarding, no rebound, no hepatosplenomegaly, no masses. EXTREMITIES: 2+ pulses, warm, well-perfused, no edema. NEUROLOGICAL: Cranial nerves II through XII grossly intact. Normal speech, gait not observed. PSYCH: Normal mood, normal affect. SKIN: Warm, dry, normal turgor, no rashes or lesions noted. LABS Laboratory Results - last 24 hr 12/26/19 12/27/19 07:22 12:20 Sodium 133 L Potassium 3.4 L 4.5 Chloride 98 Carbon Dioxide 26 Anion Gap 9 BUN 11.9 Creatinine 0.6 Est GFR (CKD-EPI)AfAm 132.14 Est GFR (CKD-EPI)NonAf 114.01 Random Glucose 105 Calcium 9.2 Phosphorus 4.4 Magnesium 2.2 Free T4 1.24 HOSPITAL COURSE: Date of Admission:12/25/19 Date of Discharge: 12/27/19 Discharge Summary Problems reviewed: Yes Reason For Visit: Altered Mental Status Condition: Improved - Instructions Diet, Activity, Other Instructions: You were admitted to the hospital for confusion While in the hospital, we evaluated you with lab work, blood work, imaging including a CAT scan of your chest. We found that your symptoms were likely caused by overdose of certain drugs you may have taken. We treated you with medications, monitored you overnight and your symptoms improved significantly. Your CAT scan showed some abnormalities which is likely due to a pneumonia, therefore you were started on antibiotics To complete the treatment of your pneumonia, please take the following medication; Cepodoxime (Vantin) 200 mg twice a day for 6 days total, starting tomorrow Clindamycin 300 mg twice a day, for 6 days total, starting tomorrow. We also found 2 lung nodules in your CAT scan, which you will need to follow up with the museum specialist, Dr. Mancera And We found that your Heart was enlarged, which you will need to follow up with an Echocardiogram at the [employer] Technician's office. Please take all medications as prescribed Please follow up with the [employer], Dr. Mancera within 1 week Please follow up with the Hydroelectric Systems Technician, Dr. Arndt, within 1 week, to get an Echocardiogram Please follow up with your primary care physician within 1 week Return to the emergency room, if you experience worsening of your symptoms, chest pain, abdominal pain or worsening of any of your conditions. Referrals: Daryl Mancera MD [Staff Physician] - 1 Week Keo Arndt MD [Staff Physician] - 1 Week Roger Brito DO [Staff Physician] - 1 Week Disposition: [facility] FACILITY - Home Medications Comprehensive Discharge Medication List: Ambulatory Orders Cefpodoxime Proxetil [Vantin -] 200 mg PO Q12H #12 tablet 12/27/19 Clindamycin [Cleocin -] 300 mg PO Q12H #12 capsule 12/27/19 Folic Acid 1 mg PO DAILY #30 tablet 12/27/19 Multivitamin [Multiple Vitamins] 1 each PO DAILY #30 tablet 12/27/19 Thiamine HCl [B-1] 100 mg PO DAILY #30 tablet 12/27/19 - Discharge Referral Referred to [facility] Med P.C.: No ATTENDING PHYSICIAN STATEMENT I saw and evaluated the patient. I reviewed the resident's note and discussed the case with the resident. I agree with the resident's findings and plan as documented. SUBJECTIVE: OBJECTIVE: ASSESSMENT AND PLAN:
--- NOTE | 2019-12-27 16:22 | PN ---
Physical Exam: SUBJECTIVE: Patient seen and examined. Pt currently seeking pain medications. Pt is agitated and screaming at the nurses station. I discussed with pt the need to return to parkcare. Pt refuses to return to park care. She reports diffuse body pains. Afebrile and no overnight events. Denies f/c/n/v/d/sob. OBJECTIVE: Vital Signs Period Temp Pulse Resp BP Sys/Abraham Pulse Ox Last 24 Hr 98.0 F-98.3 F 94-110 18-20 129-153/66-91 GENERAL: The patient is awake, alert, and not fully oriented, in no acute distress. Disheveled and poor hygiene. EYES: PERRL, extraocular movements intact, sclera anicteric. No ptosis. ENT: oropharynx clear without exudates, moist mucous membranes. NECK: Trachea midline, full range of motion, supple. LUNGS: Breath sounds equal, clear to auscultation bilaterally, no wheezes, no crackles HEART: Regular rate and rhythm, S1, S2 without murmur, rub or gallop. ABDOMEN: Soft, diffusely tender, nondistended, normoactive bowel sounds, no guarding EXTREMITIES: 2+ pulses, warm, well-perfused, no edema. NEUROLOGICAL: Cranial nerves II through XII grossly intact. Laboratory Results - last 24 hr 12/26/19 12/27/19 07:22 12:20 Sodium 133 L Potassium 3.4 L 4.5 Chloride 98 Carbon Dioxide 26 Anion Gap 9 BUN 11.9 Creatinine 0.6 Est GFR (CKD-EPI)AfAm 132.14 Est GFR (CKD-EPI)NonAf 114.01 Random Glucose 105 Calcium 9.2 Phosphorus 4.4 Magnesium 2.2 Free T4 1.24 Active Medications Current Medications Acetaminophen (Tylenol -) 650 mg PO Q4H PRN PRN Reason: PAIN LEVEL 6-10 Last Admin: 12/27/19 08:38 Dose: 650 mg Clonidine (Catapres -) 0.1 mg PO Q4H PRN PRN Reason: Withdrawal Symptoms Stop: 12/28/19 23:59 Last Admin: 12/27/19 16:01 Dose: 0.1 mg Guaifenesin (Robitussin -) 10 ml PO Q6H PRN PRN Reason: COUGH Last Admin: 12/26/19 13:04 Dose: 10 ml Heparin Sodium (Porcine) (Heparin -) 5,000 unit SQ TID [facility] Last Admin: 12/27/19 14:04 Dose: 5,000 unit Ceftriaxone Sodium 1 gm/ (Dextrose) 50 mls @ 100 mls/hr IVPB DAILY [facility] Last Admin: 12/27/19 09:18 Dose: Not Given Clindamycin Phosphate (Cleocin 600 Mg Premix Ivpb -) 600 mg in 50 mls @ 100 mls /hr IVPB Q6H-IV RADHA; Protocol Last Admin: 12/27/19 14:34 Dose: 100 mls/hr Methadone HCl (Dolophine -) 15 mg PO ONCE ONE Stop: 12/28/19 10:01 Methadone HCl (Dolophine -) 10 mg PO ONCE ONE Stop: 12/29/19 10:01 Methadone HCl (Dolophine -) 5 mg PO ONCE ONE Stop: 12/30/19 06:01 Multivitamins/Minerals/Vitamin C (Tab-A-Vit -) 1 tab PO DAILY [facility] Last Admin: 12/27/19 09:19 Dose: Not Given Thiamine HCl (Vitamin B1 -) 100 mg PO DAILY [facility] Last Admin: 12/27/19 09:19 Dose: Not Given Home Medications Medication Instructions Recorded Cefpodoxime Proxetil [Vantin -] 200 mg PO Q12H #12 tablet 12/27/19 Clindamycin [Cleocin -] 300 mg PO Q12H #12 capsule 12/27/19 Folic Acid 1 mg PO DAILY #30 tablet 12/27/19 Multivitamin [Multiple Vitamins] 1 each PO DAILY #30 tablet 12/27/19 Thiamine HCl [B-1] 100 mg PO DAILY #30 tablet 12/27/19 Microbiology 12/24/19 21:00 Blood - Peripheral Venous Blood Culture - Preliminary NO GROWTH OBTAINED AFTER 48 HOURS, INCUBATION TO CONTINUE FOR 3 DAYS. 12/24/19 21:00 Blood - Peripheral Venous Blood Culture - Preliminary NO GROWTH OBTAINED AFTER 48 HOURS, INCUBATION TO CONTINUE FOR 3 DAYS. 12/25/19 05:05 Urine - Urine Clean Catch Urine Culture - Final Contaminated: Please Repeat ASSESSMENT/PLAN: 39 y/o F, w/ pmh of poly substance abuse including cocaine, IV heroin, alcohol, presented from for altered mental status likely 2/2 to substance abuse #Acute metabolic encephalopathy 2/2 to polysubstance abuse Utox positive for cocaine and opiates Pt mentating but causing disruption CT Head shows nasal septal defect, Right posterior nasal polyp, ethmoid chronic sinusitis Pt currently getting MVI, Thiamine, Folate. cont Banana Bag Pt appears to be withdrawing Methadone detox started- 20mg today Contacted PC, pt is accepted- discussed with Dr. Neil and she accept pt. Addiction medicine consulted for transfer to [facility] #Aspiration PNA b/l CT chest: b/l infiltrates, 4mm pulmonary nodule RLL posteriorly, 4 mm Juxtapleural nodule RML, breast implants b/l. On ceftriaxone/Clinda. Afebrile, hemodynamically stable. Can discharge on Vantin 200 mg BID x6 days and Clindamycin 300 mg BID for 6 more days #Cardiomegaly seen on CXR-No evidence of fluid overload or decompensation Given Cocaine and Alcohol excess history, can be DCM Echo ordered- patient declines- can discharge pt with Cardiology referral for ECHO to be done #Pulmonary Nodules F/u out-patient Pulmonary, Dr. Mancera follow up. #Low TSH, normal free T4 Can f/u Out-patient repeat TFTs in 4-6 weeks. #DVT px - Heparin SQ. FEN monitor lytes Regular diet Dispo- Pt refuses to go to , will f/u with pt again tomorrow, pt cleared medically for d/c, f/u Addiction consult- Dr. Brito Visit type - Emergency Visit Emergency Visit: Yes ED Registration Date: 12/25/19 Care time: The patient presented to the Emergency Department on the above date and was hospitalized for further evaluation of their emergent condition. - New Patient This patient is new to me today: Yes Date on this admission: 12/27/19 - Critical Care Critical Care patient: No - Discharge Referral Referred to [facility] Med P.C.: No ATTENDING PHYSICIAN STATEMENT I saw and evaluated the patient. I reviewed the resident's note and discussed the case with the resident. I agree with the resident's findings and plan as documented. SUBJECTIVE: OBJECTIVE: ASSESSMENT AND PLAN:
[2019-12-27] MEDS ORDERED: diphenhydrAMINE HCL 25 MG CAPSULE (FP) PO ONE (17:54)
[2019-12-27] MEDS ORDERED: MELATONIN 5 MG TABLETS PO ONE (23:22)
[2019-12-27 23:25] VITALS: BP 113/77; PULSE 95; TEMP 98
[2019-12-28] MEDS: CLINDAMYCIN 600MG PREMIX IVPB 600 MG/50 ML BAG IVPB SCH ×2 (03:23→08:54)
[2019-12-28] MEDS: HEPARIN NA (PORCINE) 5,000 UNITS/ML 1ML VIAL SQ SCH (05:26)
[2019-12-28] MEDS ORDERED: METHADONE HCL 5 MG TABLET PO ONE (10:00)
--- NOTE | 2019-12-28 13:03 | DS ---
Physical Exam: SUBJECTIVE: Patient seen and examined Patient seen and examined. Pt currently seeking pain medications. She reports diffuse stomach pains. Afebrile and no overnight events. She wants to leave with her friend. Threatens to leave AMA. Denies f/c/n/v/d/sob. OBJECTIVE: Vital Signs Period Temp Pulse Resp BP Sys/Abraham Pulse Ox Last 24 Hr 98 F-98.0 F 95-110 18-19 113-129/77-91 PHYSICAL EXAM GENERAL: The patient is awake, alert, and not fully oriented, in no acute distress. Disheveled and poor hygiene. EYES: PERRL, extraocular movements intact, sclera anicteric. No ptosis. ENT: oropharynx clear without exudates, moist mucous membranes. NECK: Trachea midline, full range of motion, supple. LUNGS: Breath sounds equal, clear to auscultation bilaterally, no wheezes, no crackles HEART: Regular rate and rhythm, S1, S2 without murmur, rub or gallop. ABDOMEN: Soft, diffusely tender, nondistended, normoactive bowel sounds, no guarding EXTREMITIES: 2+ pulses, warm, well-perfused, no edema. NEUROLOGICAL: Cranial nerves II through XII grossly intact. LABS Laboratory Results - last 24 hr CBC,CMP WBC 8.1 K/mm3 (4.0-10.0) 12/26/19 07:22 RBC 5.00 M/mm3 (3.60-5.2) 12/26/19 07:22 Hgb 13.4 GM/dL (10.7-15.3) 12/26/19 07:22 Hct 39.6 % (32.4-45.2) D 12/26/19 07:22 MCV 79.1 fl (80-96) L 12/26/19 07:22 MCH 26.8 pg (25.7-33.7) 12/26/19 07:22 MCHC 33.9 g/dl (32.0-36.0) 12/26/19 07:22 RDW 16.1 % (11.6-15.6) H 12/26/19 07:22 Plt Count 379 K/MM3 (134-434) D 12/26/19 07:22 MPV 8.3 fl (7.5-11.1) 12/26/19 07:22 Absolute Neuts (auto) 4.9 K/mm3 (1.5-8.0) 12/24/19 21:00 Neutrophils % 65.8 % (42.8-82.8) 12/24/19 21:00 Lymphocytes % 25.2 % (8-40) 12/24/19 21:00 Monocytes % 5.1 % (3.8-10.2) 12/24/19 21:00 Eosinophils % 3.6 % (0-4.5) 12/24/19 21:00 Basophils % 0.3 % (0-2.0) 12/24/19 21:00 Nucleated RBC % 0 % (0-0) 12/24/19 21:00 Sodium 133 mmol/L (136-145) L 12/26/19 07:22 Potassium 4.5 mmol/L (3.5-5.1) 12/27/19 12:20 Chloride 98 mmol/L (98-107) 12/26/19 07:22 Carbon Dioxide 26 mmol/L (21-32) 12/26/19 07:22 Anion Gap 9 MMOL/L (8-16) 12/26/19 07:22 BUN 11.9 mg/dL (7-18) 12/26/19 07:22 Creatinine 0.6 mg/dL (0.55-1.3) 12/26/19 07:22 Est GFR (CKD-EPI)AfAm 132.14 12/26/19 07:22 Est GFR (CKD-EPI)NonAf 114.01 12/26/19 07:22 Random Glucose 105 mg/dL (74-106) 12/26/19 07:22 Lactic Acid 1.2 mmol/L (0.4-2.0) 12/24/19 21:00 Calcium 9.2 mg/dL (8.5-10.1) 12/26/19 07:22 Phosphorus 4.4 mg/dL (2.5-4.9) 12/26/19 07:22 Magnesium 2.2 mg/dL (1.8-2.4) 12/26/19 07:22 Total Bilirubin 0.2 mg/dL (0.2-1) 12/24/19 21:00 AST 17 U/L (15-37) 12/24/19 21:00 ALT 14 U/L (13-61) 12/24/19 21:00 Alkaline Phosphatase 93 U/L (45-117) 12/24/19 21:00 Ammonia 19.40 umol/L (11-32) 12/24/19 21:00 Troponin I < 0.02 ng/ml (0.00-0.05) 12/24/19 21:00 Total Protein 8.0 g/dl (6.4-8.2) 12/24/19 21:00 Albumin 3.2 g/dl (3.4-5.0) L 12/24/19 21:00 TSH 0.14 uIU/ml (0.358-3.74) L 12/24/19 21:00 Free T4 1.24 ng/dl (0.76-1.46) 12/26/19 07:22 Serum , Qual Negative 12/24/19 21:00 Microbiology 12/24/19 21:00 Blood - Peripheral Venous Blood Culture - Preliminary NO GROWTH OBTAINED AFTER 72 HOURS, INCUBATION TO CONTINUE FOR 2 DAYS. 12/24/19 21:00 Blood - Peripheral Venous Blood Culture - Preliminary NO GROWTH OBTAINED AFTER 72 HOURS, INCUBATION TO CONTINUE FOR 2 DAYS. 12/25/19 05:05 Urine - Urine Clean Catch Urine Culture - Final Contaminated: Please Repeat HOSPITAL COURSE: Date of Admission:12/25/19 39 y/o F, w/ pmh of poly substance abuse including cocaine, IV heroin, alcohol, presented from for altered mental status likely from Acute Toxic metabolic encephalopathy likely 2/2 to substance abuse. Pt was found Utox positive for cocaine and opiates. In the ED pt appeared confused and mentating poorly, likely from drug intoxication. CT Head showed no acute intracranial pathology but showed nasal septal defect, Right posterior nasal polyp, ethmoid chronic sinusitis. CT chest: b/l infiltrates, 4mm pulmonary nodule RLL posteriorly, 4 mm Juxtapleural nodule RML, breast implants b/l. CXR showed No evidence of fluid overload or decompensation but cardiomegaly seen. Pt was started on Thiamine, folate, IVF, banana bag, Methadone detox started w/ 20mg. Contacted , pt is accepted- discussed with Dr. Neil and she accept pt but pt refused to go to . Plan was to discharge on Vantin 200 mg BID x6 days and Clindamycin 300 mg BID for 6 more days for the CT chest findings likely from Aspiration PNA b/l. However, pt did not want to stay and signed out AMA. CT Head showed no acute intracranial pathology but showed nasal septal defect, Right posterior nasal polyp, ethmoid chronic sinusitis. CT chest: b/l infiltrates, 4mm pulmonary nodule RLL posteriorly, 4 mm Juxtapleural nodule RML, breast implants b/l. CXR showed No evidence of fluid overload or decompensation but cardiomegaly seen Date of Discharge: 12/28/19 Minutes to complete discharge: 40 Discharge Summary Problems reviewed: Yes Reason For Visit: Altered Mental Status Condition: Improved - Instructions Diet, Activity, Other Instructions: You were admitted to the hospital for confusion While in the hospital, we evaluated you with lab work, blood work, imaging including a CAT scan of your chest. We found that your symptoms were likely caused by overdose of certain drugs you may have taken. We treated you with medications, monitored you overnight and your symptoms improved significantly. Your CAT scan showed some abnormalities which is likely due to a pneumonia, therefore you were started on antibiotics To complete the treatment of your pneumonia, please take the following medication; Cepodoxime (Vantin) 200 mg twice a day for 6 days total, starting tomorrow Clindamycin 300 mg twice a day, for 6 days total, starting tomorrow. We also found 2 lung nodules in your CAT scan, which you will need to follow up with the hyperion analyst, Dr. Mancera And We found that your Heart was enlarged, which you will need to follow up with an Echocardiogram at the [employer]ician [employer] Systems's office. Please take all medications as prescribed Please follow up with the Insurance Manager, Dr. Mancera within 1 week Please follow up with the [employer], Dr. Arndt, within 1 week, to get an Echocardiogram Please follow up with your primary care physician within 1 week, you will need to repeat thyroid levels because your TSH levels were low in the hospital. Return to the emergency room, if you experience worsening of your symptoms, chest pain, abdominal pain or worsening of any of your conditions. Referrals: Daryl Mancera MD [Staff Physician] - 1 Week Keo Arndt MD [Staff Physician] - 1 Week Roger Brito DO [Staff Physician] - 1 Week Disposition: AGAINST MEDICAL ADVICE - Home Medications Comprehensive Discharge Medication List: Ambulatory Orders Cefpodoxime Proxetil [Vantin -] 200 mg PO Q12H #12 tablet 12/27/19 Clindamycin [Cleocin -] 300 mg PO Q12H #12 capsule 12/27/19 Folic Acid 1 mg PO DAILY #30 tablet 12/27/19 Multivitamin [Multiple Vitamins] 1 each PO DAILY #30 tablet 12/27/19 Thiamine HCl [B-1] 100 mg PO DAILY #30 tablet 12/27/19 This patient is new to me today: Yes Date on this admission: 12/28/19 Emergency Visit: Yes ED Registration Date: 12/25/19 Care time: The patient presented to the Emergency Department on the above date and was hospitalized for further evaluation of their emergent condition. Critical Care patient: No - Discharge Referral Referred to [facility] Med P.C.: No ATTENDING PHYSICIAN STATEMENT I saw and evaluated the patient. I reviewed the resident's note and discussed the case with the resident. I agree with the resident's findings and plan as documented. SUBJECTIVE: OBJECTIVE: ASSESSMENT AND PLAN:
[2019-12-29] MEDS ORDERED: METHADONE HCL 10 MG TABLET PO ONE (10:00)
[2019-12-30] MEDS ORDERED: METHADONE HCL 5 MG TABLET PO ONE (06:00)
== END 2019-12-28 09:23 | disposition left against medical advice (07) | DRG 812 ==
LOC: JER 19:04 → JERBED 12-25 05:09 → J6S 12-25 21:40
PROVIDERS: ATTEND Internal Medicine
PROC: HZ2ZZZZ Detoxification Services for Substance Abuse Treatment (ICD-10-PCS; principal; 2019-12-24)
DX: T40.2X1A Poisoning by other opioids, accidental (unintentional), initial encounter (principal); I51.7 Cardiomegaly; F11.23 Opioid dependence with withdrawal; F14.23 Cocaine dependence with withdrawal; F19.239 Other psychoactive substance dependence with withdrawal, unspecified; T40.5X1A Poisoning by cocaine, accidental (unintentional), initial encounter; G92 Toxic encephalopathy; J69.0 Pneumonitis due to inhalation of food and vomit; E87.6 Hypokalemia; R41.82 Altered mental status, unspecified; R91.8 Other nonspecific abnormal finding of lung field
CPT/HCPCS: 36415; 70450-TC; 71045-TC-FY; 71250-TC; 80048; 80053; 80307; 81003; 82140; 82803; 83605; 83735; 84100; 84132; 84439; 84443; 84484; 84703; 85025; 85027; 85610; 85730; 87040; 87086; 87804; 93005; 93010; 99284-25; J0131; J0735; J1644; J7030

== ENCOUNTER 2022-08-27 14:54 | Inpatient (IN) | payer OTHER ==
[2022-08-27 20:57] VITALS: BMI 18.8
[2022-08-28] MEDS ORDERED: IBUPROFEN 400 MG TABLET (FP) PO PRN (03:15)
[2022-08-28] MEDS ORDERED: MAGNESIUM HYDROX 2400MG/30ML ORAL SUSPENSION 30 ML CUP PO PRN (03:15)
[2022-08-28] MEDS ORDERED: ONDANSETRON *ODT* 4 MG TABLET SL PRN (03:15)
[2022-08-28] MEDS ORDERED: ACETAMINOPHEN 325 MG TABLET (FP) PO PRN (03:15)
[2022-08-28] MEDS ORDERED: LOPERAMIDE HCL 2 MG CAPSULE PO PRN (03:15)
[2022-08-28] MEDS ORDERED: BISMUTH SUBSALICYLATE 524 MG/30 ML PO PRN (03:15)
[2022-08-28] MEDS ORDERED: NALOXONE HCL (KLOXXADO) 8 MG SPRAY NS PRN (03:15)
[2022-08-28] MEDS ORDERED: cloNIDine HCL 0.1 MG TABLET PO PRN (03:15)
[2022-08-28] MEDS ORDERED: BENZOCAINE/MENTHOL (CHLORASEPTIC ) LOZENGE MM PRN (03:15)
[2022-08-28] MEDS ORDERED: DICYCLOMINE HCL 10 MG CAPSULE PO PRN (03:15)
[2022-08-28] MEDS ORDERED: MAG HYDROX/AL HYDROX/SIMETH 30 ML UNIT-DOSE CUP PO PRN (03:15)
[2022-08-28] MEDS ORDERED: NICOTINE 10 MG CARTRIDGE (INHALER) IH PRN (03:15)
[2022-08-28] MEDS ORDERED: MAGNESIUM CITRATE 300 ML BOTTLE PO PRN (03:15)
[2022-08-28] MEDS ORDERED: methaDONE HCL 10 MG TABLET (FOR DETOX USE ONLY) PO ONE (03:15)
[2022-08-28] MEDS ORDERED: methaDONE HCL 10 MG TABLET (FOR DETOX USE ONLY) ONE ×2 (03:36→09:20)
[2022-08-28] MEDS ORDERED: ACETAMINOPHEN 325 MG TABLET (FP) ONE (03:37)
[2022-08-28] MEDS: ACETAMINOPHEN 325 MG TABLET (FP) PO PRN (03:40)
[2022-08-28] MEDS ORDERED: IBUPROFEN 400 MG TABLET (FP) PO ONE (09:21)
[2022-08-28] MEDS: PRENATAL VITAMINS W/ FOLIC ACID TABLET (FP) PO SCH (10:49)
[2022-08-28 15:05] LABS: HEMATOCRIT 36.2 % (32.4-45.2); HEMOGLOBIN 11.3 GM/dL (10.7-15.3); MCH 25.9 pg (25.7-33.7); MCHC 31.2 g/dl (32.0-36.0); MEAN CELL VOLUME 83.1 fl (80-96); MEAN PLT VOLUME 8.9 fl (7.5-11.1); PLATELET COUNT 308 10^3/uL (134-434); RBC 4.36 M/mm3 (3.60-5.2); RDW 17.1 % (11.6-15.6); WHITE BLOOD COUNT 6.3 K/mm3 (4.0-10.0)
[2022-08-28 15:19] LABS: ALBUMIN 3.4 g/dl (3.4-5.0); BLOOD UREA NITROGEN 18.7 mg/dL (7-18); CALCIUM 9.2 mg/dL (8.5-10.1)
[2022-08-28 15:21] LABS: CREATININE 0.7 mg/dL (0.55-1.3)
[2022-08-28 15:23] LABS: BILIRUBIN,TOTAL 0.5 mg/dL (0.2-1); TOT PROT 8.2 g/dl (6.4-8.2)
[2022-08-28 16:06] LABS: HIV INTERPRETATION NEGATIVE (NEGATIVE)
[2022-08-28] MEDS: METHOCARBAMOL 500 MG TABLET PO PRN (19:10)
[2022-08-28] MEDS: MELATONIN 5 MG TABLETS PO SCH (23:08)
[2022-08-28] MEDS: THIAMINE HCL 100 MG TABLET (FP) PO SCH (23:09)
[2022-08-29] MEDS: METHOCARBAMOL 500 MG TABLET PO PRN ×2 (05:49→22:22)
[2022-08-29] MEDS: PRENATAL VITAMINS W/ FOLIC ACID TABLET (FP) PO SCH (09:09)
[2022-08-29] MEDS ORDERED: methaDONE HCL 10 MG TABLET (FOR DETOX USE ONLY) PO ONE (10:00)
[2022-08-29] MEDS: ACETAMINOPHEN 325 MG TABLET (FP) PO PRN (17:33)
[2022-08-29] MEDS: THIAMINE HCL 100 MG TABLET (FP) PO SCH (22:22)
[2022-08-29] MEDS: QUEtiapine FUMARATE 50 MG TABLET PO SCH (22:22)
[2022-08-29] MEDS: MELATONIN 5 MG TABLETS PO SCH (22:22)
[2022-08-30] MEDS: IBUPROFEN 600 MG TABLET (FP) PO PRN ×2 (09:25→17:27)
[2022-08-30] MEDS: METHOCARBAMOL 500 MG TABLET PO PRN ×2 (09:25→22:17)
[2022-08-30] MEDS: PRENATAL VITAMINS W/ FOLIC ACID TABLET (FP) PO SCH (09:30)
[2022-08-30] MEDS ORDERED: methaDONE HCL 10 MG TABLET (FOR DETOX USE ONLY) PO ONE (10:00)
[2022-08-30] MEDS: QUEtiapine FUMARATE 50 MG TABLET PO SCH (22:17)
[2022-08-30] MEDS: MELATONIN 5 MG TABLETS PO SCH (22:18)
[2022-08-30] MEDS: THIAMINE HCL 100 MG TABLET (FP) PO SCH (22:18)
[2022-08-31] MEDS ORDERED: methaDONE HCL 10 MG TABLET (FOR DETOX USE ONLY) PO ONE (10:00)
[2022-08-31] MEDS: METHOCARBAMOL 500 MG TABLET PO PRN (10:03)
[2022-08-31] MEDS: PRENATAL VITAMINS W/ FOLIC ACID TABLET (FP) PO SCH (10:03)
[2022-08-31] MEDS: THIAMINE HCL 100 MG TABLET (FP) PO SCH (22:13)
[2022-08-31] MEDS: QUEtiapine FUMARATE 50 MG TABLET PO SCH (22:13)
[2022-08-31] MEDS: MELATONIN 5 MG TABLETS PO SCH (22:13)
[2022-09-01] MEDS ORDERED: methaDONE HCL 10 MG TABLET (FOR DETOX USE ONLY) PO ONE (10:00)
[2022-09-01] MEDS: METHOCARBAMOL 500 MG TABLET PO PRN ×2 (10:30→15:46)
[2022-09-01] MEDS: ACETAMINOPHEN 325 MG TABLET (FP) PO PRN (10:30)
[2022-09-01] MEDS: PRENATAL VITAMINS W/ FOLIC ACID TABLET (FP) PO SCH (10:31)
[2022-09-01] MEDS: IBUPROFEN 600 MG TABLET (FP) PO PRN (15:46)
[2022-09-01 21:20] VITALS: RESP 16
[2022-09-01] MEDS: QUEtiapine FUMARATE 50 MG TABLET PO SCH (22:25)
[2022-09-01] MEDS: THIAMINE HCL 100 MG TABLET (FP) PO SCH (22:25)
[2022-09-01] MEDS: MELATONIN 5 MG TABLETS PO SCH (22:25)
[2022-09-02] MEDS: METHOCARBAMOL 500 MG TABLET PO PRN (05:58)
[2022-09-02 07:19] VITALS: BP 104/61; PULSE 80; TEMP 97.5
== END 2022-09-02 09:35 | disposition home or self-care (01) | DRG 773 ==
LOC: YASAS 14:54 → Y6N 08-28 09:33
PROVIDERS: ADMIT Allergy & Immunology; ATTEND Surgery
PROC: HZ2ZZZZ Detoxification Services for Substance Abuse Treatment (ICD-10-PCS; principal; 2022-08-28)
DX: F11.23 Opioid dependence with withdrawal (principal); F10.20 Alcohol dependence, uncomplicated; F14.20 Cocaine dependence, uncomplicated; F17.210 Nicotine dependence, cigarettes, uncomplicated; F19.282 Other psychoactive substance dependence with psychoactive substance-induced sleep disorder; F19.24 Other psychoactive substance dependence with psychoactive substance-induced mood disorder; F20.9 Schizophrenia, unspecified; F41.9 Anxiety disorder, unspecified; Z56.0 Unemployment, unspecified; Z59.00 Homelessness unspecified
CPT/HCPCS: 36415; 80053; 81025; 85027; 86780; 87389; 87811; C9803-CS; U0003; U0005

== ENCOUNTER 2022-11-10 09:37 | Inpatient (IN) | payer OTHER ==
[2022-11-10 11:17] VITALS: BMI 17.8
[2022-11-10] MEDS ORDERED: MAGNESIUM HYDROX 2400MG/30ML ORAL SUSPENSION 30 ML CUP PO PRN (15:01)
[2022-11-10] MEDS ORDERED: IBUPROFEN 400 MG TABLET (FP) PO PRN (15:01)
[2022-11-10] MEDS ORDERED: DICYCLOMINE HCL 10 MG CAPSULE PO PRN (15:01)
[2022-11-10] MEDS ORDERED: LOPERAMIDE HCL 2 MG CAPSULE PO PRN (15:01)
[2022-11-10] MEDS ORDERED: ACETAMINOPHEN 325 MG TABLET (FP) PO PRN ×2 (15:01)
[2022-11-10] MEDS ORDERED: ONDANSETRON *ODT* 4 MG TABLET SL PRN (15:01)
[2022-11-10] MEDS ORDERED: BISMUTH SUBSALICYLATE 524 MG/30 ML PO PRN (15:01)
[2022-11-10] MEDS ORDERED: BENZOCAINE/MENTHOL (CHLORASEPTIC ) LOZENGE MM PRN (15:01)
[2022-11-10] MEDS ORDERED: NALOXONE HCL (KLOXXADO) 8 MG SPRAY NS PRN (15:01)
[2022-11-10] MEDS ORDERED: POLYETHYLENE GLYCOL (HEALTHYLAX) 3350 17 GM PACKET PO PRN (15:01)
[2022-11-10] MEDS ORDERED: MAG HYDROX/AL HYDROX/SIMETH 30 ML UNIT-DOSE CUP PO PRN (15:01)
[2022-11-10] MEDS ORDERED: methaDONE HCL 10 MG TABLET (FOR DETOX USE ONLY) ONE (15:30)
[2022-11-10] MEDS: PRENATAL VITAMINS W/ FOLIC ACID TABLET (FP) PO SCH (15:40)
[2022-11-10] MEDS: cloNIDine HCL 0.1 MG TABLET PO PRN ×2 (15:42→23:27)
[2022-11-10] MEDS ORDERED: methaDONE HCL 10 MG TABLET (FOR DETOX USE ONLY) PO ONE (15:45)
[2022-11-10] MEDS: IBUPROFEN 600 MG TABLET (FP) PO PRN (17:13)
[2022-11-10] MEDS: hydrOXYzine PAMOATE 25 MG CAPSULE (FP) PO PRN (17:13)
[2022-11-10] MEDS: METHOCARBAMOL 500 MG TABLET PO PRN (17:15)
[2022-11-10] MEDS: MELATONIN 5 MG TABLETS PO SCH (23:24)
[2022-11-10] MEDS: THIAMINE HCL 100 MG TABLET (FP) PO SCH (23:24)
[2022-11-11] MEDS: IBUPROFEN 600 MG TABLET (FP) PO PRN ×2 (10:03→19:28)
[2022-11-11] MEDS: cloNIDine HCL 0.1 MG TABLET PO PRN (10:04)
[2022-11-11] MEDS: METHOCARBAMOL 500 MG TABLET PO PRN (10:05)
[2022-11-11] MEDS: hydrOXYzine PAMOATE 25 MG CAPSULE (FP) PO PRN (10:05)
[2022-11-11] MEDS: PRENATAL VITAMINS W/ FOLIC ACID TABLET (FP) PO SCH (10:05)
[2022-11-11 13:29] LABS: HEMATOCRIT 36.2 % (32.4-45.2); HEMOGLOBIN 11.8 GM/dL (10.7-15.3); MCH 26.6 pg (25.7-33.7); MCHC 32.5 g/dl (32.0-36.0); MEAN CELL VOLUME 81.7 fl (80-96); MEAN PLT VOLUME 9.7 fl (7.5-11.1); PLATELET COUNT 325 10^3/uL (134-434); RBC 4.42 M/mm3 (3.60-5.2); RDW 16.7 % (11.6-15.6); WHITE BLOOD COUNT 8.7 K/mm3 (4.0-10.0)
[2022-11-11 13:48] LABS: CALCIUM 9.2 mg/dL (8.5-10.1)
[2022-11-11 13:49] LABS: ALBUMIN 3.2 g/dl (3.4-5.0); BLOOD UREA NITROGEN 13.9 mg/dL (7-18)
[2022-11-11 13:54] LABS: BILIRUBIN,TOTAL 0.3 mg/dL (0.2-1)
[2022-11-11 13:55] LABS: TOT PROT 7.9 g/dl (6.4-8.2)
[2022-11-11 14:00] LABS: CREATININE 0.7 mg/dL (0.55-1.3)
[2022-11-11] MEDS ORDERED: QUEtiapine FUMARATE 50 MG TABLET PO SCH (22:00)
[2022-11-11] MEDS: THIAMINE HCL 100 MG TABLET (FP) PO SCH (22:53)
[2022-11-11] MEDS: MELATONIN 5 MG TABLETS PO SCH (22:53)
[2022-11-12 07:08] VITALS: BP 138/84; PULSE 84; RESP 18; TEMP 97.7
[2022-11-12] MEDS ORDERED: methaDONE HCL 10 MG TABLET (FOR DETOX USE ONLY) PO ONE (10:00)
[2022-11-14] MEDS ORDERED: methaDONE HCL 10 MG TABLET (FOR DETOX USE ONLY) PO ONE (10:00)
== END 2022-11-12 09:12 | disposition left against medical advice (07) | DRG 770 ==
LOC: SUATTDRO 09:37 → YASAS 09:37 → Y6N 15:12
PROVIDERS: ADMIT Allergy & Immunology; ATTEND Surgery
PROC: HZ2ZZZZ Detoxification Services for Substance Abuse Treatment (ICD-10-PCS; principal; 2022-11-10)
DX: F11.23 Opioid dependence with withdrawal (principal); F14.20 Cocaine dependence, uncomplicated; F17.210 Nicotine dependence, cigarettes, uncomplicated; F20.0 Paranoid schizophrenia; F19.24 Other psychoactive substance dependence with psychoactive substance-induced mood disorder; F19.282 Other psychoactive substance dependence with psychoactive substance-induced sleep disorder; R63.4 Abnormal weight loss; Z68.1 Body mass index [BMI] 19.9 or less, adult; Z98.82 Breast implant status; Z62.810 Personal history of physical and sexual abuse in childhood; Z91.51 Personal history of suicidal behavior; Z56.0 Unemployment, unspecified; Z59.00 Homelessness unspecified
CPT/HCPCS: 36415; 80053; 81025; 85027; 86780; C9803-CS; U0003; U0005

== ENCOUNTER 2023-02-22 13:05 | Inpatient (IN) | payer OTHER ==
[2023-02-22] MEDS ORDERED: NALOXONE HCL (KLOXXADO) 8 MG SPRAY NS PRN (19:03)
[2023-02-22] MEDS ORDERED: BISMUTH SUBSALICYLATE 524 MG/30 ML PO PRN (19:03)
[2023-02-22] MEDS ORDERED: MAG HYDROX/AL HYDROX/SIMETH 30 ML UNIT-DOSE CUP PO PRN (19:03)
[2023-02-22] MEDS ORDERED: IBUPROFEN 400 MG TABLET (FP) PO PRN (19:03)
[2023-02-22] MEDS ORDERED: NALOXONE HCL 0.4 MG/ML VIAL IM PRN (19:03)
[2023-02-22] MEDS ORDERED: MAGNESIUM HYDROX 2400MG/30ML ORAL SUSPENSION 30 ML CUP PO PRN (19:03)
[2023-02-22] MEDS ORDERED: BENZONATATE 200 MG CAPSULE PO PRN (19:03)
[2023-02-22] MEDS ORDERED: guaiFENesin 600 MG TABLET.ER (FP) PO PRN (19:03)
[2023-02-22] MEDS ORDERED: DICYCLOMINE HCL 10 MG CAPSULE PO PRN (19:03)
[2023-02-22] MEDS ORDERED: POLYETHYLENE GLYCOL (HEALTHYLAX) 3350 17 GM PACKET PO PRN (19:03)
[2023-02-22] MEDS ORDERED: ACETAMINOPHEN 325 MG TABLET (FP) PO PRN (19:03)
[2023-02-22] MEDS ORDERED: LOPERAMIDE HCL 2 MG CAPSULE PO PRN (19:03)
[2023-02-22] MEDS ORDERED: BENZOCAINE/MENTHOL (CHLORASEPTIC ) LOZENGE MM PRN (19:03)
[2023-02-22] MEDS ORDERED: NICOTINE 10 MG CARTRIDGE (INHALER) IH PRN (19:03)
[2023-02-22] MEDS: MELATONIN 5 MG TABLETS PO SCH (22:49)
[2023-02-22] MEDS: THIAMINE HCL 100 MG TABLET (FP) PO SCH (22:49)
[2023-02-22] MEDS: SULFAMETHOXAZOLE/TRIMETHOPRIM 800MG/160MG D.S. TABLET PO SCH (22:49)
[2023-02-23] MEDS: METHOCARBAMOL 500 MG TABLET PO PRN ×2 (08:45→22:04)
[2023-02-23] MEDS: hydrOXYzine PAMOATE 25 MG CAPSULE (FP) PO PRN ×2 (08:45→22:04)
[2023-02-23] MEDS: PRENATAL VITAMINS W/ FOLIC ACID TABLET (FP) PO SCH (10:08)
[2023-02-23] MEDS: SULFAMETHOXAZOLE/TRIMETHOPRIM 800MG/160MG D.S. TABLET PO SCH ×2 (10:08→22:05)
[2023-02-23 11:50] LABS: ALBUMIN 3.1 g/dl (3.4-5.0); BLOOD UREA NITROGEN 11.3 mg/dL (7-18); CALCIUM 8.8 mg/dL (8.5-10.1)
[2023-02-23 11:54] LABS: CREATININE 0.8 mg/dL (0.55-1.3)
[2023-02-23 11:55] LABS: BILIRUBIN,TOTAL 0.2 mg/dL (0.2-1); TOT PROT 8.6 g/dl (6.4-8.2)
[2023-02-23] MEDS: MELATONIN 5 MG TABLETS PO SCH (22:05)
[2023-02-23] MEDS: THIAMINE HCL 100 MG TABLET (FP) PO SCH (22:05)
[2023-02-24] MEDS ORDERED: cloNIDine HCL 0.1 MG TABLET PO ONE (06:58)
[2023-02-24] MEDS: METHOCARBAMOL 500 MG TABLET PO PRN (07:22)
[2023-02-24] MEDS ORDERED: cloNIDine HCL 0.1 MG TABLET PO PRN (10:09)
[2023-02-24] MEDS ORDERED: diazePAM 5 MG TABLET PO PRN (10:09)
[2023-02-24] MEDS: SULFAMETHOXAZOLE/TRIMETHOPRIM 800MG/160MG D.S. TABLET PO SCH ×2 (10:51→22:27)
[2023-02-24] MEDS: diazePAM 5 MG TABLET PO SCH ×3 (10:52→22:27)
[2023-02-24] MEDS: PRENATAL VITAMINS W/ FOLIC ACID TABLET (FP) PO SCH (10:52)
[2023-02-24] MEDS ORDERED: methaDONE HCL 10 MG TABLET (FOR DETOX USE ONLY) PO ONE (11:00)
[2023-02-24] MEDS: IBUPROFEN 600 MG TABLET (FP) PO PRN ×2 (13:01→22:29)
[2023-02-24] MEDS: ONDANSETRON *ODT* 4 MG TABLET SL PRN (17:12)
[2023-02-24] MEDS: MELATONIN 5 MG TABLETS PO SCH (22:27)
[2023-02-24] MEDS: THIAMINE HCL 100 MG TABLET (FP) PO SCH (22:27)
[2023-02-25] MEDS: diazePAM 5 MG TABLET PO SCH ×2 (05:40→10:48)
[2023-02-25] MEDS: ONDANSETRON *ODT* 4 MG TABLET SL PRN (05:42)
[2023-02-25 09:55] VITALS: BP 104/66; PULSE 112; RESP 18; TEMP 97.1
[2023-02-25] MEDS: PRENATAL VITAMINS W/ FOLIC ACID TABLET (FP) PO SCH (10:48)
[2023-02-25] MEDS: SULFAMETHOXAZOLE/TRIMETHOPRIM 800MG/160MG D.S. TABLET PO SCH (10:48)
[2023-02-25] MEDS ORDERED: CLINDAMYCIN HCL 150 MG CAPSULE (FP) PO SCH (15:15)
[2023-02-26] MEDS ORDERED: diazePAM 5 MG TABLET PO SCH (06:00)
[2023-02-26] MEDS ORDERED: methaDONE HCL 10 MG TABLET (FOR DETOX USE ONLY) PO ONE (10:00)
[2023-02-27] MEDS ORDERED: diazePAM 5 MG TABLET PO SCH (06:00)
[2023-02-28] MEDS ORDERED: diazePAM 5 MG TABLET PO ONE (06:00)
[2023-02-28] MEDS ORDERED: methaDONE HCL 10 MG TABLET (FOR DETOX USE ONLY) PO ONE (10:00)
== END 2023-02-25 15:10 | disposition left against medical advice (07) | DRG 770 ==
LOC: YASAS 13:05 → UNDOADMIN 19:08 → Y3N 19:08 → UNDODISIN 02-25 15:10
PROVIDERS: ADMIT Allergy & Immunology; ATTEND Surgery
PROC: HZ2ZZZZ Detoxification Services for Substance Abuse Treatment (ICD-10-PCS; principal; 2023-02-22)
DX: F11.23 Opioid dependence with withdrawal (principal); F10.230 Alcohol dependence with withdrawal, uncomplicated; F14.20 Cocaine dependence, uncomplicated; F17.210 Nicotine dependence, cigarettes, uncomplicated; F20.9 Schizophrenia, unspecified; F19.24 Other psychoactive substance dependence with psychoactive substance-induced mood disorder; L02.414 Cutaneous abscess of left upper limb; Z91.199 Patient's noncompliance with other medical treatment and regimen due to unspecified reason
CPT/HCPCS: 80053; C9803-CS; Q0162; U0003; U0005

== ENCOUNTER 2023-02-25 09:46 | Emergency (ER) | payer OTHER ==
[2023-02-25 10:12] VITALS: BP 108/66; RESP 18; TEMP 98.6; BMI 15.6
[2023-02-25] MEDS ORDERED: LIDOCAINE HCL 1%, 10 MG/ML (10ML VIAL) MDV ONE (12:56)
[2023-02-25 14:28] VITALS: PULSE 75
== END 2023-02-25 16:27 | disposition home or self-care (01) ==
LOC: JER 09:46
PROC: 0H9EXZZ Drainage of Left Lower Arm Skin, External Approach (ICD-10-PCS; principal; 2023-02-25)
DX: L02.414 Cutaneous abscess of left upper limb (principal); R11.2 Nausea with vomiting, unspecified; R50.9 Fever, unspecified; M79.632 Pain in left forearm; R22.32 Localized swelling, mass and lump, left upper limb
CPT/HCPCS: 99283-25

== ENCOUNTER 2024-10-29 16:27 | Inpatient (IN) | payer OTHER ==
[2024-10-29 17:20] VITALS: BMI 17.6
[2024-10-29] MEDS ORDERED: diazePAM 5 MG TABLET PO PRN (19:08)
[2024-10-29] MEDS ORDERED: POLYETHYLENE GLYCOL (HEALTHYLAX) 3350 17 GM PACKET PO PRN (19:08)
[2024-10-29] MEDS ORDERED: LOPERAMIDE HCL 2 MG CAPSULE PO PRN (19:08)
[2024-10-29] MEDS ORDERED: BENZONATATE 200 MG CAPSULE PO PRN (19:08)
[2024-10-29] MEDS ORDERED: methaDONE HCL 10 MG TABLET (FOR DETOX USE ONLY) PO PRN (19:08)
[2024-10-29] MEDS ORDERED: BENZOCAINE/MENTHOL (CHLORASEPTIC ) LOZENGE MM PRN (19:08)
[2024-10-29] MEDS ORDERED: NICOTINE POLACRILEX 2 MG GUM BUC PRN (19:08)
[2024-10-29] MEDS ORDERED: IBUPROFEN 400 MG TABLET (FP) PO PRN (19:08)
[2024-10-29] MEDS ORDERED: MAG HYDROX/AL HYDROX/SIMETH 30 ML UNIT-DOSE CUP PO PRN (19:08)
[2024-10-29] MEDS ORDERED: BISMUTH SUBSALICYLATE 524 MG/30 ML PO PRN (19:08)
[2024-10-29] MEDS ORDERED: guaiFENesin 600 MG TABLET.ER (FP) PO PRN (19:08)
[2024-10-29] MEDS ORDERED: IBUPROFEN 600 MG TABLET (FP) PO PRN (19:08)
[2024-10-29] MEDS ORDERED: ONDANSETRON *ODT* 4 MG TABLET SL PRN (19:08)
[2024-10-29] MEDS ORDERED: MAGNESIUM HYDROX 2400MG/30ML ORAL SUSPENSION 30 ML CUP PO PRN (19:08)
[2024-10-29] MEDS ORDERED: NALOXONE (NARCAN) HCL 4 MG/0.1 ML SPRAY NS PRN (19:08)
[2024-10-29] MEDS ORDERED: DICYCLOMINE HCL 10 MG CAPSULE PO PRN (19:08)
[2024-10-29] MEDS ORDERED: methaDONE HCL 10 MG TABLET (FOR DETOX USE ONLY) ONE (19:53)
[2024-10-29] MEDS: methaDONE HCL 10 MG TABLET (FOR DETOX USE ONLY) PO ONE (19:54)
[2024-10-29] MEDS: cloNIDine HCL 0.1 MG TABLET PO PRN (20:22)
[2024-10-29] MEDS: MELATONIN 5 MG TABLETS PO SCH (22:09)
[2024-10-29] MEDS: METHOCARBAMOL 500 MG TABLET PO PRN (22:09)
[2024-10-29] MEDS: diazePAM 5 MG TABLET PO SCH (22:09)
[2024-10-29] MEDS: THIAMINE 100 MG TABLET PO SCH (22:09)
[2024-10-29] MEDS: hydrOXYzine PAMOATE 25 MG CAPSULE (FP) PO PRN (22:09)
[2024-10-30] MEDS: PRENATAL VITAMINS W/ FOLIC ACID TABLET (FP) PO SCH (09:39)
[2024-10-30] MEDS: NICOTINE 14 MG/24 HOURS TOPICAL PATCH TD SCH (09:39)
[2024-10-30 12:52] LABS: HEMATOCRIT 32.2 % (32.4-45.2); HEMOGLOBIN 10.6 GM/dL (10.7-15.3); MCH 26.9 pg (25.7-33.7); MCHC 32.8 g/dl (32.0-36.0); MEAN CELL VOLUME 82.2 fl (80-96); MEAN PLT VOLUME 7.9 fl (7.5-11.1); PLATELET COUNT 355 10^3/uL (134-434); RBC 3.92 M/mm3 (3.60-5.2); RDW 16.2 % (11.6-15.6); WHITE BLOOD COUNT 10.3 K/mm3 (4.0-10.0)
[2024-10-30 12:55] LABS: CHLORIDE 105 mmol/L (98-107); POTASSIUM 3.6 mmol/L (3.5-5.1); SODIUM 139 mmol/L (136-145)
[2024-10-30 12:58] LABS: CALCIUM 9.4 mg/dL (8.5-10.1)
[2024-10-30 12:59] LABS: ALBUMIN 2.9 g/dl (3.4-5.0); ANION GAP 8 mmol/L (4-13); BLOOD UREA NITROGEN 12.3 mg/dL (7-18); CO2 26 mmol/L (21-32); GLUCOSE,RANDOM 155 mg/dL (74-106)
[2024-10-30 13:02] LABS: CREATININE 0.7 mg/dL (0.55-1.3); SGOT/AST 15 U/L (15-37); SGPT/ALT 17 U/L (13-61)
[2024-10-30 13:03] LABS: BILIRUBIN,TOTAL 0.4 mg/dL (0.2-1)
[2024-10-30 13:04] LABS: TOT PROT 8.1 g/dl (6.4-8.2)
[2024-10-30 13:05] LABS: ALK PHOS 87 U/L (45-117)
[2024-10-30] MEDS: ACETAMINOPHEN 325 MG TABLET (FP) PO PRN (13:18)
[2024-10-30] MEDS: QUEtiapine FUMARATE 50 MG TABLET PO SCH (22:04)
[2024-10-31] MEDS: diazePAM 5 MG TABLET PO SCH (05:22)
[2024-10-31 05:57] VITALS: BP 141/96; PULSE 98; RESP 18; TEMP 98.9
[2024-10-31] MEDS ORDERED: methaDONE HCL 10 MG TABLET (FOR DETOX USE ONLY) PO ONE (10:00)
[2024-11-01] MEDS ORDERED: diazePAM 5 MG TABLET PO SCH (06:00)
[2024-11-02] MEDS ORDERED: diazePAM 5 MG TABLET PO ONE (06:00)
[2024-11-02] MEDS ORDERED: methaDONE HCL 10 MG TABLET (FOR DETOX USE ONLY) PO ONE (10:00)
== END 2024-10-31 09:01 | disposition left against medical advice (07) | DRG 770 ==
LOC: YASAS 16:27 → Y3N 19:52
PROVIDERS: ADMIT Allergy & Immunology; ATTEND Surgery
PROC: HZ2ZZZZ Detoxification Services for Substance Abuse Treatment (ICD-10-PCS; principal; 2024-10-29)
DX: F11.23 Opioid dependence with withdrawal (principal); F10.230 Alcohol dependence with withdrawal, uncomplicated; F14.20 Cocaine dependence, uncomplicated; F17.210 Nicotine dependence, cigarettes, uncomplicated; F25.9 Schizoaffective disorder, unspecified; F19.24 Other psychoactive substance dependence with psychoactive substance-induced mood disorder; F41.9 Anxiety disorder, unspecified; L02.413 Cutaneous abscess of right upper limb; Z91.199 Patient's noncompliance with other medical treatment and regimen due to unspecified reason; Z59.00 Homelessness unspecified
CPT/HCPCS: 36415; 80053; 80305; 80307; 81025; 85027; 86780; 93005; 93010